=== PATIENT | male | born 1945 | race Caucasian/White ===

== ENCOUNTER 2020-11-27 18:34 | Inpatient (IN) ==
[2020-11-27] MEDS ORDERED: ALBUTEROL HFA 8 GM INHALER INH ONE (19:03)
[2020-11-27] MEDS ORDERED: dexAMETHasone**PF** 10 MG/ML VIAL IV ONE (19:03)
[2020-11-27] MEDS ORDERED: SODIUM CHLORIDE 0.9% 1000ML 500 ML IV ONE (19:06)
--- NOTE | 2020-11-27 19:09 | Emergency Department Note ---
Impression & Plan Hypoxia, SOB (shortness of breath), Pneumonia, COVID-19 ED Provider Note NAME: KENDRA SHEIKH AGE: 75 SEX: M : 1945 ARRIVES VIA: Walk-In INFORMANT: [Patient] ED PROVIDER(S): [Horace Sterling MD] CHIEF COMPLAINT: Shortness of breath HISTORY OF PRESENT ILLNESS: The patient is a 75-year-old male who states that he is 10 days into a Covid infection. He has had chills, cough, some shortness of breath. The patient has had a fever and body aches. He has not had any issues with taste or smell. The patient states his whole family is sick and in quarantine. The patient is not immunized against Covid. Over the last few days, the patient has noticed increasing shortness of breath. He feels like he cannot catch enough breath and that he cannot cough out what m ight be in his lungs. He presents for evaluation. Patient does not have any diagnosed lung disease but he does have a history of coronary stenting. He has never had a PE or DVT. He states he has been laying around quite a bit lately as he has been so winded. REVIEW OF SYSTEMS: See HPI for pertinent positives and negatives. A total of ten systems were reviewed and were otherwise negative. PMHx/PSHx: See Below SOCIAL HISTORY: See Below. PHYSICAL EXAM: GENERAL: Patient is in no acute distress. HEENT: No acute trauma, normocephalic atraumatic, mucous membranes moist, no nasal congestion, no scleral icterus. NECK: No stridor, no adenopathy, no meningismus, trachea is midline. LUNGS: He does have some decreased breath sounds with some crackles on the left. No wheezing. He has an increased respiratory rate. No true respiratory distress. HEART: Tachycardic, regular rhythm, no murmurs. ABDOMEN: Soft, nontender, bowel sounds positive, no hernias, no peritonitis. EXTREMITIES: No cyanosis or edema, full range of motion of all the joints without pain or difficulty, no signs for acute trauma. NEUROLOGIC: Oriented x 3, no acute motor or sensory deficits, no focal weakness. SKIN: No rash, no jaundice, no diaphoresis. DIFFERENTIAL DIAGNOSIS: Reactive airway disease, pneumonia, pneumothorax, COVID-19, COPD, CHF, infection, cardiac ischemia, pulmonary embolism, bronchitis, musculoskeletal, gastrointestinal, as well as other pathologies. EMERGENCY DEPARTMENT COURSE/PROCEDURES: ECG: Indication was shortness of breath. The ECG shows a normal sinus rhythm with a rate of 92. LVH is present. There is no ST elevation, no PVCs. The QTc is 460. Continuous Cardiac Monitoring: An order was placed for continuous cardiac monitoring. The monitor shows a rate of 107 with sinus tachycardia. Critical Care Note: I have personally spent 38 minutes of critical care time in the direct management of this patient. This includes bedside care, interpretation of diagnostic studies, and testing, discussion with consultants, patient, and family members, and other required patient management activities. This 38 minutes is in excess of all separately billable procedures. MEDICAL DECISION MAKING: There is no leukocytosis or concerning anemia. There is a normal platelet count. No coagulopathy. D-dimer was elevated making PE more likely. No significant electrolyte abnormality or kidney failure. Lactic acid level was not elevated making sepsis unlikely. No worrisome liver enzyme elevation. ECG shows a sinus rhythm, no acute ischemia. Cardiac enzyme testing x1 is not consistent with acute cardiac injury. Covid testing returned positive. Chest film shows a bilateral pneumonia consistent with his Covid diagnosis. Chest CT does not show any PE or aortic dissection. Bilateral pulmonary infiltrates consistent with a viral pneumonia were noted. Patient received IV saline, 500 cc. He was given albuterol via MDI, he was given IV Decadron. He did drop his O2 saturation to around 88 to 89% with ambulation. He became hypoxic with exertion. The patient has worsened in the last few days. He has become more short of breath. He is hypoxic with exertion and I do think at this point requires a hospital stay. I did speak with the patient and case management, the on-call hospitalist was consulted. His Covid diagnosis does explain his presentation. Past Med/Surg History Medical History Bladder stone BPH (benign prostatic hyperplasia) GERD (gastroesophageal reflux disease) Heart disease HTN (hypertension) Hyperlipidemia Myocardial infarction X2 - Stents placed after first MN Urinary tract infection Surgical History H/O heart artery stent History of cardiac cath X2 History of colonoscopy History of cystoscopy LASER LITHO 11/16/13 - MAC #3, ETT #8.0 cuffed, Grade 2 View History of herniorrhaphy Right inguinal History of nasal surgery Age 17 - for nasal fracture Family History Other Family history non-contributory Social History Smoking Status: Never smoker Cigarettes Per Day: 0; Second Hand Exposure: No; Hx Alcohol Use: Yes Alcohol type: other Hx Substance Use: No Preferred Language: Sami Communication Ability: Effective Recycling Specialist Required: No Beliefs That Will Affect Care: None Current Living Situation: Spouse current occupation: mail delivery Feels Safe at Home: Yes Assistive Devices: Hearing Aid - Bilateral Allergies Allergies Allergy/AdvReac Type Severity Reaction Status Date / Time No Known Allergies Allergy U Verified 11/27/20 20:48 Home Meds Home Medications Medication Instructions Recorded Confirmed atorvastatin 80 mg PO QAM 10/22/18 11/27/20 citalopram 60 mg PO QAM 10/22/18 11/27/20 ezetimibe 10 mg PO QAM 10/22/18 11/27/20 finasteride 5 mg PO QAM 10/22/18 11/27/20 metoprolol succinate 25 mg PO QAM 10/22/18 11/27/20 omeprazole 40 mg PO QAM 10/22/18 11/27/20 tamsulosin 0.4 mg PO QAM 10/22/18 11/27/20 aspirin 81 mg PO QAM 11/21/18 11/27/20 ferrous sulfate [Iron (ferrous 325 mg PO BID 11/21/18 11/27/20 sulfate)] Results & Data (ED) Vital Signs Vital Signs - 24 hr 11/27/20 18:39 11/27/20 19:05 11/27/20 19:07 Temperature 36.9 C Temperature Source Temporal Artery Scan Pulse Rate 121 H 100 H 98 H Pulse Rate [Exercises] Pulse Rate from SpO2 Sensor 99 H 98 H Respiratory Rate 20 18 14 Respiratory Rate [Exercises] Respiratory Effort / Characteristics Non-Labored Respiratory Depth Normal Respiratory Pattern Regular Blood Pressure 123/79 163/85 H Blood Pressure Mean 93 111 Pulse Oximetry 90 90 92 Pulse Oximetry [Exercises] Oxygen Delivery Method Room Air Oxygen Flow Rate Sepsis Recent Fever Within 48 Hours No Sepsis New/Unexplained Change in Mental Status No Sepsis Action Taken by Nursing No Action Required 11/27/20 19:15 11/27/20 19:30 11/27/20 19:35 Temperature Temperature Source Pulse Rate 95 H Pulse Rate [Exercises] 107 H Pulse Rate from SpO2 Sensor 95 H 96 H Respiratory Rate 15 Respiratory Rate [Exercises] 24 Respiratory Effort / Characteristics Non-Labored Spontaneous Accessory Muscle Use Respiratory Depth Normal Respiratory Pattern Regular Blood Pressure Blood Pressure Mean Pulse Oximetry 94 94 89 L Pulse Oximetry [Exercises] 89 L Oxygen Delivery Method Nasal Cannula Oxygen Flow Rate 2 Sepsis Recent Fever Within 48 Hours Sepsis New/Unexplained Change in Mental Status Sepsis Action Taken by Nursing 11/27/20 19:37 11/27/20 19:45 11/27/20 20:00 Temperature Temperature Source Pulse Rate 84 Pulse Rate [Exercises] Pulse Rate from SpO2 Sensor 88 85 84 Respiratory Rate 18 Respiratory Rate [Exercises] Respiratory Effort / Characteristics Respiratory Depth Respiratory Pattern Blood Pressure 142/76 H 149/66 H Blood Pressure Mean 98 93 Pulse Oximetry 97 96 95 Pulse Oximetry [Exercises] Oxygen Delivery Method Nasal Cannula Oxygen Flow Rate 2 Sepsis Recent Fever Within 48 Hours Sepsis New/Unexplained Change in Mental Status Sepsis Action Taken by Nursing 11/27/20 20:15 11/27/20 20:30 11/27/20 20:45 Temperature Temperature Source Pulse Rate 85 89 92 H Pulse Rate [Exercises] Pulse Rate from SpO2 Sensor 85 89 92 H Respiratory Rate 26 H 22 24 Respiratory Rate [Exercises] Respiratory Effort / Characteristics Respiratory Depth Respiratory Pattern Blood Pressure 142/70 H Blood Pressure Mean 94 Pulse Oximetry 96 95 94 Pulse Oximetry [Exercises] Oxygen Delivery Method Oxygen Flow Rate Sepsis Recent Fever Within 48 Hours Sepsis New/Unexplained Change in Mental Status Sepsis Action Taken by Nursing 11/27/20 21:12 11/27/20 21:15 11/27/20 21:30 Temperature Temperature Source Pulse Rate 88 87 84 Pulse Rate [Exercises] Pulse Rate from SpO2 Sensor 95 H 88 84 Respiratory Rate 20 23 21 Respiratory Rate [Exercises] Respiratory Effort / Characteristics Respiratory Depth Respiratory Pattern Blood Pressure 137/67 Blood Pressure Mean 90 Pulse Oximetry 96 96 97 Pulse Oximetry [Exercises] Oxygen Delivery Method Oxygen Flow Rate Sepsis Recent Fever Within 48 Hours Sepsis New/Unexplained Change in Mental Status Sepsis Action Taken by Nursing 11/27/20 21:45 11/27/20 22:00 11/27/20 22:15 Temperature Temperature Source Pulse Rate 83 80 78 Pulse Rate [Exercises] Pulse Rate from SpO2 Sensor 83 80 79 Respiratory Rate Respiratory Rate [Exercises] Respiratory Effort / Characteristics Respiratory Depth Respiratory Pattern Blood Pressure 138/72 Blood Pressure Mean 94 Pulse Oximetry 96 96 97 Pulse Oximetry [Exercises] Oxygen Delivery Method Oxygen Flow Rate Sepsis Recent Fever Within 48 Hours Sepsis New/Unexplained Change in Mental Status Sepsis Action Taken by Nursing 11/27/20 22:30 11/27/20 22:45 11/27/20 23:00 Temperature Temperature Source Pulse Rate 78 76 72 Pulse Rate [Exercises] Pulse Rate from SpO2 Sensor 79 76 72 Respiratory Rate Respiratory Rate [Exercises] Respiratory Effort / Characteristics Respiratory Depth Respiratory Pattern Blood Pressure 135/67 124/69 Blood Pressure Mean 89 87 Pulse Oximetry 97 97 97 Pulse Oximetry [Exercises] Oxygen Delivery Method Oxygen Flow Rate Sepsis Recent Fever Within 48 Hours Sepsis New/Unexplained Change in Mental Status Sepsis Action Taken by [facility] Medications Current Medication List: was personally reviewed by me Laboratory Data Attestation: I reviewed the patient's lab results. Result diagrams: 11/27/20 19:22 11/27/20 19:22 Lab Results 11/27/20 11/27/20 11/27/20 Range/Units 19:22 19:22 19:22 WBC 4.87 (4.8-10.8) K/uL RBC 5.38 (4.7-6.1) M/uL Hgb 15.9 (14.0-18.0) g/dL Hct 47.2 (42-52) % MCV 87.7 (80-100) fL MCH 29.6 (25-34) pg MCHC 33.7 (32-36) g/dL RDW Std Deviation 47.1 H (36.4-46.3) fL RDW Coeff of Demetrice 14.6 H (11.5-14.5) % Plt Count 168 (130-400) K/uL MPV 10.9 H (7.4-10.4) fL Immature Gran % (Auto) 0.2 % Neut % (Auto) 73.1 % Lymph % (Auto) 17.7 % [place] % (Auto) 8.8 % Eos % (Auto) 0.0 % Baso % (Auto) 0.2 % Neut # (Auto) 3.56 (1.4-6.5) K/uL Lymph # (Auto) 0.86 L (1.2-3.4) K/uL [place] # (Auto) 0.43 (0.11-0.59) K/uL Eos # (Auto) 0.00 (0-0.5) K/uL Baso # (Auto) 0.01 (0-0.2) K/uL Immature Gran # (Auto) 0.01 (0.00-0.02) K/uL PT 10.2 (9.0-12.0) Seconds INR 1.0 (0.9-1.1) APTT 29.1 (21.0-31.0) Seconds PTT Ratio 1.1 D-Dimer 950 H* (0-500) ug/L FEU Sodium 136 (136-145) mmol/L Potassium 3.8 (3.5-5.1) mmol/L Chloride 104 (98-107) mmol/L Carbon Dioxide 25 (21-32) mmol/L Anion Gap 7.0 (3-11) BUN 22 H (7-18) mg/dl Creatinine 1.20 (0.6-1.4) mg/dl Est Cr Clr Drug Dosing 66.9 ml/min Est GFR ( Amer) 68.6 ml/min Est GFR (Non-Af Amer) 59.2 ml/min BUN/Creatinine Ratio 18.3 (10-20) Glucose 111 H (70-99) mg/dl Lactate (0.4-2.0) mmol/L Calcium 9.2 (8.5-10.1) mg/dl Magnesium 1.9 (1.8-2.4) mg/dl Total Bilirubin 0.8 (0.2-1) mg/dl AST 35 (15-37) U/L ALT 42 (12-78) U/L Alkaline Phosphatase 83 (45-117) U/L Troponin I < 0.015 (0-0.045) ng/ml Total Protein 7.1 (6.4-8.2) gm/dl Albumin 3.1 L (3.4-5.0) gm/dl Globulin 4.0 (2.5-4.0) gm/dl Albumin/Globulin Ratio 0.8 L (0.9-2) COVID-19 Eval Order SARS-CoV-2 (PCR) (Negative) 0511/27/20 11/27/20 Range/Units 19:22 19:22 19:22 WBC (4.8-10.8) K/uL RBC (4.7-6.1) M/uL Hgb (14.0-18.0) g/dL Hct (42-52) % MCV (80-100) fL MCH (25-34) pg MCHC (32-36) g/dL RDW Std Deviation (36.4-46.3) fL RDW Coeff of Demetrice (11.5-14.5) % Plt Count (130-400) K/uL MPV (7.4-10.4) fL Immature Gran % (Auto) % Neut % (Auto) % Lymph % (Auto) % [place] % (Auto) % Eos % (Auto) % Baso % (Auto) % Neut # (Auto) (1.4-6.5) K/uL Lymph # (Auto) (1.2-3.4) K/uL [place] # (Auto) (0.11-0.59) K/uL Eos # (Auto) (0-0.5) K/uL Baso # (Auto) (0-0.2) K/uL Immature Gran # (Auto) (0.00-0.02) K/uL PT (9.0-12.0) Seconds INR (0.9-1.1) APTT (21.0-31.0) Seconds PTT Ratio D-Dimer (0-500) ug/L FEU Sodium (136-145) mmol/L Potassium (3.5-5.1) mmol/L Chloride (98-107) mmol/L Carbon Dioxide (21-32) mmol/L Anion Gap (3-11) BUN (7-18) mg/dl Creatinine (0.6-1.4) mg/dl Est Cr Clr Drug Dosing ml/min Est GFR ( Amer) ml/min Est GFR (Non-Af Amer) ml/min BUN/Creatinine Ratio (10-20) Glucose (70-99) mg/dl Lactate 1.2 (0.4-2.0) mmol/L Calcium (8.5-10.1) mg/dl Magnesium (1.8-2.4) mg/dl Total Bilirubin (0.2-1) mg/dl AST (15-37) U/L ALT (12-78) U/L Alkaline Phosphatase (45-117) U/L Troponin I (0-0.045) ng/ml Total Protein (6.4-8.2) gm/dl Albumin (3.4-5.0) gm/dl Globulin (2.5-4.0) gm/dl Albumin/Globulin Ratio (0.9-2) COVID-19 Eval Order Cov[facility] at [facility] SARS-CoV-2 (PCR) POSITIVE A* (Negative) Administered Medications Magnesium Sulfate/Dextrose (Magnesium Sulfate / D5w) 1 gm in 100 mls @ 50 mls/ hr IV Q2H TEZ Stop: 11/28/20 02:15 Last Admin: 11/27/20 22:56 Dose: 50 mls/hr Documented by: [id number] Infusion: 11/27/20 22:56 Dose: 50 mls/hr Documented by: [id number] Admin: 11/27/20 22:55 Dose: 50 mls/hr Documented by: [id number] Discontinued Medications Albuterol (Albuterol Hfa 8 Gm Inhaler) 3 puffs INH NOW ONE Stop: 11/27/20 19:04 Last Admin: 11/27/20 19:54 Dose: 3 puffs Documented by: [id number] Dexamethasone Sodium Phosphate (DexamethasonePf 10 Mg/Ml Vial) 10 mg IV NOW ONE Stop: 11/27/20 19:04 Last Admin: 11/27/20 19:54 Dose: 10 mg Documented by: [id number] Sodium Chloride (Nss 1000ml) 500 mls @ 999 mls/hr IV .Q31M ONE Stop: 11/27/20 19:36 Last Infusion: 11/27/20 20:29 Dose: 0 mls/hr Documented by: [id number] Admin: 11/27/20 19:54 Dose: 999 mls/hr Documented by: [id number] Ioversol (Optiray 350 500ml) 98 ml IV ONCE ONE Stop: 11/27/20 21:05 Last Admin: 11/27/20 21:04 Dose: 98 ml Documented by: [id number] Potassium Chloride (Potassium Chloride Crtab 20 Meq Tabcr) 20 meq PO NOW STA Stop: 11/27/20 22:28 Last Admin: 11/27/20 22:56 Dose: 20 meq Documented by: [id number] Imaging Data Radiologist's Impression: Chest X-Ray 11/27/20 19:03 XR chest 1V portable CLINICAL HISTORY: Shortness of breath. COMPARISON STUDY: Chest radiograph October 22, 2018. FINDINGS: Lung volumes are mildly diminished. There is no pneumothorax or ple ural effusion. Cardiomegaly is unchanged. Note is made of moderate multifocal bilateral airspace opacities. IMPRESSION: Bilateral airspace opacities which favor multifocal pneumonia. Radiographic follow-up is recommended to ensure resolution. ACT 112: Negative or not required by law. Electronically signed by: Carloz Rivera M.D. 11/27/2020 7:[address] for PE: There is no pulmonary embolus. There are some mild atherosclerotic change of the aorta, no aneurysm or aortic dissection. There is patchy groundglass opacities throughout the lungs consistent with Covid infection. There is a trace right pleural effusion. There are some nonspecific prominent mediastinal hilar lymph nodes present. Discharge Plan Visit Data Chief Complaint: Shortness of Breath/Dyspnea Stated Complaint: COVID +, SOB ED Provider: Horace Sterling Discharge Problem: Hypoxia, SOB (shortness of breath), Pneumonia, COVID-19 Patient Disposition: Admitted As Inpatient Condition: Fair Forms Stand Alone Forms: [facility] Prescriptions Prescriptions: No Action aspirin 81 mg Tablet,Delayed Release (Dr/Ec) 81 mg PO QAM RF: 0 ferrous sulfate [Iron (ferrous sulfate)] 325 mg (65 mg iron) Tablet 325 mg PO BID RF: 0 atorvastatin 80 mg tablet 80 mg PO QAM RF: 0 citalopram 40 mg tablet 60 mg PO QAM RF: 0 omeprazole 40 mg capsule,delayed release(DR/EC) 40 mg PO QAM RF: 0 tamsulosin 0.4 mg Capsule 0.4 mg PO QAM RF: 0 metoprolol succinate 25 mg tablet extended release 24 hr 25 mg PO QAM RF: 0 finasteride 5 mg tablet 5 mg PO QAM RF: 0 ezetimibe 10 mg Tablet 10 mg PO QAM RF: 0 Referrals Referrals: Susan Larios DO [Primary Care Provider] - Discharge Problem: Pneumonia Qualifiers: Pneumonia type: due to unspecified organism Laterality: bilateral Lung location: unspecified part of lung Qualified Code(s): J18.9 - Pneumonia, unspecified organism
[2020-11-27 19:43] LABS: Hematocrit (blood only) 47.2 % (42-52); Hemoglobin 15.9 g/dL (14.0-18.0); Mean Corpuscular Hemoglobin 29.6 pg (25-34); Mean Corpuscular Hgb Conc 33.7 g/dL (32-36); Mean Corpuscular Volume 87.7 fL (80-100); Mean Platelet Volume 10.9 fL (7.4-10.4); Platelet Count 168 K/uL (130-400); RDW Coefficient of Variation 14.6 % (11.5-14.5); RDW Standard Deviation 47.1 fL (36.4-46.3); Red Blood Count 5.38 M/uL (4.7-6.1); White Blood Count 4.87 K/uL (4.8-10.8)
--- NOTE | 2020-11-27 19:45 | XRay Report ---
XR chest 1V portable CLINICAL HISTORY: Shortness of breath. COMPARISON STUDY: Chest radiograph October 22, 2018. FINDINGS: Lung volumes are mildly diminished. There is no pneumothorax or pleural effusion. Cardiomeg steven is unchanged. Note is made of moderate multifocal bilateral airspace opacities. IMPRESSION: Bilateral airspace opacities which favor multifocal pneumonia. Radiographic follow-up is recommended to ensure resolution. ACT 112: Negative or not required by law. Electronically signed by: Carloz Rivera M.D. 11/27/2020 7:44 PM
[2020-11-27 19:56] LABS: Partial Thromboplastin Ratio 1.1; Partial Thromboplastin Time 29.1 Seconds (21.0-31.0); Prothrombin Time 10.2 Seconds (9.0-12.0)
[2020-11-27 19:57] LABS: Alanine Aminotransferase 42 U/L (12-78); Albumin Level 3.1 gm/dl (3.4-5.0); Aspartate Aminotransferase 35 U/L (15-37); BUN Creatinine Ratio 18.3 (10-20); Blood Urea Nitrogen 22 mg/dl (7-18); Calcium 9.2 mg/dl (8.5-10.1); Carbon Dioxide 25 mmol/L (21-32); Chloride 104 mmol/L (98-107); Creatinine Clr Calc Pharmacy 66.9 ml/min; Est GFR (African American) 68.6 ml/min; Est GFR (Non-African American) 59.2 ml/min; Glucose 111 mg/dl (70-99); Magnesium 1.9 mg/dl (1.8-2.4); Potassium 3.8 mmol/L (3.5-5.1); Sodium 136 mmol/L (136-145)
[2020-11-27 20:01] LABS: Albumin Globulin Ratio 0.8 (0.9-2); Alkaline Phosphatase 83 U/L (45-117); Bilirubin,Total 0.8 mg/dl (0.2-1); Total Protein 7.1 gm/dl (6.4-8.2); Troponin I < 0.015 ng/ml (0-0.045)
[2020-11-27 20:05] LABS: D Dimer 950 ug/L FEU (0-500)
[2020-11-27 20:23] LABS: Basophils # (auto) 0.01 K/uL (0-0.2); Basophils % (auto) 0.2 %; Immature Granulocytes # (auto) 0.01 K/uL (0.00-0.02); Immature Granulocytes % (auto) 0.2 %; Lymphocytes # (auto) 0.86 K/uL (1.2-3.4); Lymphocytes % (auto) 17.7 %; Monocytes # (auto) 0.43 K/uL (0.11-0.59); Monocytes % (auto) 8.8 %; Neutrophils # (auto) 3.56 K/uL (1.4-6.5); Neutrophils % (auto) 73.1 %
[2020-11-27] MEDS ORDERED: OPTIRAY 350 500ml IV ONE (21:04)
[2020-11-27] MEDS ORDERED: POTASSIUM CHLORIDE CRTAB 20 MEQ TABCR PO STA (22:27)
[2020-11-27] MEDS: MAGNESIUM SULFATE / D5W 1 GM/100 ML BAG IV SCH ×2 (22:55→22:56)
--- NOTE | 2020-11-27 23:28 | History & Physical Report ---
Date of Service November 27, 2020 Assessment & Plan (1) Acute hypoxemic respiratory failure: Secondary to severe COVID-19 pneumonia Positive test from 19 days ago although patient claims to be symptomatic just in the last 3 days. CAD status post stent/PVD hx bicuspid aortic valve/mild aortic regurgitation hypertension, slightly elevated hyperlipidemia on statin Rx prediabetes, hemoglobin A1c of 5.4 from 2019 Medical telemetry Supplemental O2 Decadron, MDI RTC Patient refusing Remdesivir course for now. Update hemoglobin A1c DVT prophylaxis. Lovenox subcu Full code Text document was generated using Numote voice recognition software. It may contain grammatical or spelling errors. Kindly contact undersigned for clarification of any documentation item in question. History of Present Illness Chief Complaint: Shortness of breath, Covid Primary Care Provider: Susan Larios DO History obtained from patient and records. Medical history significant for CAD status post stent, PVD, valvular heart disease (mild/bicuspid aortic valve on TTE 2020), hypertension, hyperlipidemia, prediabetes, anxiety/mood disorder. Last confinement December 2017 for NSTEMI. Nine days ago, patient requested for an outpatient COVID-19 test after exposure to a sick family member. Outpatient COVID-19 test was positive. Patient PCP recommended quarantine. 3 days history of dry cough, fever, chills, shortness of breath. No chest pain. Patient seen at PCP's office today. Outpatient labs and requested. ER evaluation recommended for worsening symptoms. O2 sats noted to be 89 at some point during ER stay. Patient received Decadron at the ER. Medical History as above Surgical History : Cystoscopy, nasal septum repair, hernia repair Family History : Heart disease, stroke Personal/Social history : Non-smoker, occasional EtOH intake, retired from construction work Allergies Allergy/AdvReac Type Severity Reaction Status Date / Time No Known Allergies Allergy U Verified 11/27/20 20:48 Home Medications Medication Instructions Recorded Confirmed Type atorvastatin 80 mg PO QAM 10/22/18 11/27/20 History citalopram 60 mg PO QAM 10/22/18 11/27/20 History ezetimibe 10 mg PO QAM 10/22/18 11/27/20 History finasteride 5 mg PO QAM 10/22/18 11/27/20 History metoprolol succinate 25 mg PO QAM 10/22/18 11/27/20 History omeprazole 40 mg PO QAM 10/22/18 11/27/20 History tamsulosin 0.4 mg PO QAM 10/22/18 11/27/20 History aspirin 81 mg PO QAM 11/21/18 11/27/20 History ferrous sulfate [Iron (ferrous 325 mg PO BID 11/21/18 11/27/20 History sulfate)] Past Med/Surg History Medical History (Updated 11/28/20 @ 05:28 by Tone Alexander MD) Bladder stone BPH (benign prostatic hyperplasia) GERD (gastroesophageal reflux disease) Heart disease HTN (hypertension) Hyperlipidemia Myocardial infarction X2 - Stents placed after first [place] Urinary tract infection Surgical History H/O heart artery stent History of cardiac cath X2 History of colonoscopy History of cystoscopy LASER LITHO 11/16/13 - MAC #3, ETT #8.0 cuffed, Grade 2 View History of herniorrhaphy Right inguinal History of nasal surgery Age 17 - for nasal fracture Family History Other Family history non-contributory Social History Smoking Status: Never smoker Cigarettes Per Day: 0; Second Hand Exposure: No; Hx Alcohol Use: No Hx Substance Use: No Preferred Language: Qatari Communication Ability: Effective 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 Required: No Beliefs That Will Affect Care: None Current Living Situation: Spouse current occupation: mail delivery Other Information That Helps Us Care for You: No Feels Safe at Home: Yes Safety Concerns: Feels Safe At This Time Assistive Devices: None Review of Systems Review of Systems: As per HPI, all 10 systems reviewed, all other ROS negative Physical Exam Physical Exam: GENERAL: Comfortable, pleasant, obese, no respiratory distress SKIN: Normal color, warm HEENT: Alopecia, pink palpebral conjunctivae, no ptosis, dry buccal mucosa, nasal cannula in place NECK : Supple, no tenderness CHEST : Decreased breath sounds, no tenderness HEART : RRR, no obvious murmurs ABDOMEN: Some distention, nontender EXTREMITIES : No LE swelling/tenderness, no other conspicuous deformities noted NEUROLOGIC : Coherent, no facial asymmetry, no other gross focality Results & Data Results & Data ([facility]) Vital Signs (Past 12 Hours) Vital Signs Temp Pulse Pulse Resp Resp BP Pulse Ox 11/27/20 23:00 72 22 124/69 97 11/27/20 22:45 76 21 97 11/27/20 22:30 78 24 135/67 97 11/27/20 22:15 78 21 97 11/27/20 22:00 80 20 138/72 96 11/27/20 21:45 83 19 96 11/27/20 21:30 84 21 137/67 97 11/27/20 21:15 87 23 96 11/27/20 21:12 88 20 96 11/27/20 20:45 92 H 24 94 11/27/20 20:30 89 22 142/70 H 95 11/27/20 20:15 85 26 H 96 11/27/20 20:00 84 18 149/66 H 95 11/27/20 19:45 96 11/27/20 19:37 142/76 H 97 11/27/20 19:35 107 H 24 89 L 11/27/20 19:30 94 11/27/20 19:15 95 H 15 94 11/27/20 19:07 98 H 14 92 11/27/20 19:05 100 H 18 163/85 H 90 11/27/20 18:39 36.9 C 121 H 20 123/79 90 Pulse Ox 11/27/20 23:00 11/27/20 22:45 11/27/20 22:30 11/27/20 22:15 11/27/20 22:00 11/27/20 21:45 11/27/20 21:30 11/27/20 21:15 11/27/20 21:12 11/27/20 20:45 11/27/20 20:30 11/27/20 20:15 11/27/20 20:00 11/27/20 19:45 11/27/20 19:37 11/27/20 19:35 89 L 11/27/20 19:30 11/27/20 19:15 11/27/20 19:07 11/27/20 19:05 11/27/20 18:39 Laboratory Results Laboratory Results WBC 4.87 K/uL (4.8-10.8) 11/27/20 19:22 RBC 5.38 M/uL (4.7-6.1) 11/27/20: Hgb 15.9 g/dL (14.0-18.0) 11/27/20: Hct 47.2 % (42-52) 11/27/20: MCV 87.7 fL (80-100) 11/27/20: MCH 29.6 pg (25-34) 11/27/20: MCHC 33.7 g/dL (32-36) 11/27/20: RDW Std Deviation 47.1 fL (36.4-46.3) H 11/27/20: RDW Coeff of Demetrice 14.6 % (11.5-14.5) H 11/27/20: Plt Count 168 K/uL (130-400) 11/27/20: MPV 10.9 fL (7.4-10.4) H 11/27/20: Immature Gran % (Auto) 0.2 % 11/27/20: Neut % (Auto) 73.1 % 11/27/20: Lymph % (Auto) 17.7 % 11/27/20: [place] % (Auto) 8.8 % 11/27/20: Eos % (Auto) 0.0 % 11/27/20: Baso % (Auto) 0.2 % 11/27/20: Neut # (Auto) 3.56 K/uL (1.4-6.5) 11/27/20: Lymph # (Auto) 0.86 K/uL (1.2-3.4) L 11/27/20: [place] # (Auto) 0.43 K/uL (0.11-0.59) 11/27/20: Eos # (Auto) 0.00 K/uL (0-0.5) 11/27/20: Baso # (Auto) 0.01 K/uL (0-0.2) 11/27/20: Immature Gran # (Auto) 0.01 K/uL (0.00-0.02) 11/27/20: PT 10.2 Seconds (9.0-12.0) 11/27/20: INR 1.0 (0.9-1.1) 11/27/20 19: APTT 29.1 Seconds (21.0-31.0) 11/27/20 19: PTT Ratio 1.1 11/27/20 19: D-Dimer 950 ug/L FEU (0-500) H* 11/27/20 19: Sodium 136 mmol/L (136-145) 11/27/20 19: Potassium 3.8 mmol/L (3.5-5.1) 11/27/20 19: Chloride 104 mmol/L (98-107) 11/27/20 19: Carbon Dioxide 25 mmol/L (21-32) 11/27/20: Anion Gap 7.0 (3-11) 11/27/20: BUN 22 mg/dl (7-18) H 11/27/20: Creatinine 1.20 mg/dl (0.6-1.4) 11/27/20: Est Cr Clr Drug Dosing 66.9 ml/min 11/27/20 19: Est GFR ( Amer) 68.6 ml/min 11/27/20 19: Est GFR (Non-Af Amer) 59.2 ml/min 11/27/20 19: BUN/Creatinine Ratio 18.3 (10-20) 11/27/20 19: Glucose 111 mg/dl (70-99) H 11/27/20: Lactate 1.2 mmol/L (0.4-2.0) 11/27/20: Calcium 9.2 mg/dl (8.5-10.1) 11/27/20 19: Magnesium 1.9 mg/dl (1.8-2.4) 11/27/20: Total Bilirubin 0.8 mg/dl (0.2-1) 11/27/20 19: AST 35 U/L (15-37) 11/27/20 19: ALT 42 U/L (12-78) 11/27/20: Alkaline Phosphatase 83 U/L (45-117) 11/27/20: Troponin I < 0.015 ng/ml (0-0.045) 05/19/21 19:22 Total Protein 7.1 gm/dl (6.4-8.2) 11/27/20 19:22 Albumin 3.1 gm/dl (3.4-5.0) L 11/27/20 19:22 Globulin 4.0 gm/dl (2.5-4.0) 11/27/20 19:22 Albumin/Globulin Ratio 0.8 (0.9-2) L 11/27/20 19:22 COVID-19 Eval Order Covid19 at [facility] 11/27/20 19:22 SARS-CoV-2 (PCR) POSITIVE (Negative) A* 11/27/20 19:22 Impressions Chest X-Ray 11/27/20 19:03 XR chest 1V portable CLINICAL HISTORY: Shortness of breath. COMPARISON STUDY: Chest radiograph October 22, 2018. FINDINGS: Lung volumes are mildly diminished. There is no pneumothorax or pleural effusion. Cardiomegaly is unchanged. Note is made of moderate multifocal bilateral airspace opacities. IMPRESSION: Bilateral airspace opacities which favor multifocal pneumonia. Radiographic follow-up is recommended to ensure resolution. ACT 112: Negative or not required by law. Electronically signed by: Carloz Rivera M.D. 11/27/2020 7:[address] chest initial read: No pulmonary embolus identified. Mild atherosclerotic changes of the aorta. No aortic aneurysm or dissection. Patchy ground glass opacities at densities throughout the lungs, concerning for Covid 19 infection. Trace right pleural effusion. Nonspecific mildly prominent mediastinal and hilar lymph nodes. Small hiatal hernia. Small hepatic cysts. EKG as per my interpretation : Rate 90, NSR, LAD, LAFB, LVH T wave abnormalities inferior leads
[2020-11-28] MEDS ORDERED: NSS + 20MEQ KCL 20 MEQ/1,000 ML BAG IV ONE (02:26)
[2020-11-28] MEDS ORDERED: PROMETHAZINE HCL 12.5 MG in SODIUM CHLORIDE 0.9% 50 ML IV PRN (02:26)
[2020-11-28] MEDS ORDERED: traMADol HCL 50 MG TABLET PO PRN (02:26)
[2020-11-28] MEDS ORDERED: ACETAMINOPHEN 325 MG TAB PO PRN (02:26)
[2020-11-28] MEDS: guaiFENesin 600 MG TABCR PO SCH ×3 (03:31→21:10)
[2020-11-28] MEDS ORDERED: ALBUTEROL HFA 8 GM INHALER INH SCH (07:00)
--- NOTE | 2020-11-28 07:30 | CT Scan Report ---
CT ANGIOGRAM OF THE CHEST CLINICAL HISTORY: PE COMPARISON STUDY: No previous studies for comparison. TECHNIQUE: Following the IV administration of 98 mL of Optiray, CT angiogram of the thorax was perfor med from the thoracic inlet to the lung bases utilizing the pulmonary embolus protocol. Images are re viewed in the axial, sagittal, and coronal planes. IV contrast was administered without complication. MIP imaging was performed. A dose lowering technique was utilized adhering to the principles of ALA RA. CT DOSE: 509.32 mGy.cm FINDINGS: There is adequate opacification within pulmonary artery. No intraluminal filling defect is seen within pulmonary artery branches to suggest pulmonary embolus . Pulmonary artery is nondilated. No evidence of right heart strain. Heart is normal in size without evidence of pericardial effusion. Minimal coronary calcifications are seen. There is no axial, supra clavicle or internal mammary lymphadenopathy seen. There are a few slightly prominent mediastinal lymph nodes are seen measuring up to 1.1 cm in short axis. No significant hilar lymphadenopathy seen. Visualized portion of thyroid gland shows no evidence of focal lesions. Esophagus is patulous. Mild hiatal hernia is seen. Aorta is normal in caliber with scattered calcifications of its wall. Tracheobronchial tree is patent. There are multifocal consolidative opacities intermixed with groundglass attenuation and mild septal thickening predominantly within peripheral aspect of bilateral lungs likely represent multifocal pneu monia/COVID. No pleural effusion is seen. Limited evaluation of upper abdomen shows few slightly hypoattenuating lesions within the right and l eft lobes, largest is measuring 1.8 cm seen within subcapsular aspect of the segment 2 (series 4 imag e 11). Evaluation of osseous structures shows mild degenerative changes of the spine. IMPRESSION: 1. No evidence of pulmonary embolus. 2. Multifocal pneumonia/COVID. Short-term follow-up with CT of the chest without IV contrast in 4-6 weeks is recommended to document resolution. 3. Partially visualized multiple hypoattenuating lesions within liver which were better evaluated o n CT of the abdomen and pelvis performed on August 24, 2018. 4. Mild hiatal hernia. ACT 112: Negative or not required by law. The above report was generated using voice recognition software. It may contain grammatical, syntax o r spelling errors. Electronically signed by: Valeria De La Rosa DO 11/28/2020 7:29 AM
[2020-11-28 07:55] LABS: Estimated Average Glucose 128 mg/dl; Hemoglobin A1C 6.1 % (4.5-5.6)
[2020-11-28 08:01] LABS: Basophils # (auto) 0.01 K/uL (0-0.2); Basophils % (auto) 0.3 %; Hematocrit (blood only) 46.7 % (42-52); Hemoglobin 15.7 g/dL (14.0-18.0); Lymphocytes # (auto) 1.04 K/uL (1.2-3.4); Lymphocytes % (auto) 28.4 %; Mean Corpuscular Hemoglobin 30.1 pg (25-34); Mean Corpuscular Hgb Conc 33.6 g/dL (32-36); Mean Corpuscular Volume 89.5 fL (80-100); Mean Platelet Volume 10.1 fL (7.4-10.4); Monocytes % (auto) 8.2 %; Neutrophils # (auto) 2.31 K/uL (1.4-6.5); Neutrophils % (auto) 63.1 %; Platelet Count 182 K/uL (130-400); RDW Coefficient of Variation 14.6 % (11.5-14.5); RDW Standard Deviation 48.3 fL (36.4-46.3); Red Blood Count 5.22 M/uL (4.7-6.1); White Blood Count 3.66 K/uL (4.8-10.8)
[2020-11-28] MEDS ORDERED: ALBUTEROL HFA 8 GM INHALER INH PRN (08:03)
[2020-11-28] MEDS: dexAMETHasone 6 MG in SYRINGE 0 ML IV SCH (08:39)
[2020-11-28] MEDS: ATORVASTATIN 40 MG TAB PO SCH (08:39)
[2020-11-28] MEDS: ASPIRIN 81 MG ECTAB PO SCH (08:39)
[2020-11-28] MEDS: FINASTERIDE 5 MG TAB PO SCH (08:39)
[2020-11-28] MEDS: CITALOPRAM 20 MG TAB PO SCH (08:40)
[2020-11-28] MEDS: FERROUS SULFATE 325 MG TAB PO SCH ×2 (08:40→21:10)
[2020-11-28] MEDS: TAMSULOSIN HCL 0.4 MG CAP PO SCH (08:40)
[2020-11-28] MEDS: EZETIMIBE 10 MG TABLET PO SCH (08:40)
[2020-11-28] MEDS: METOPROLOL SUCC 25MG EXT REL TAB PO SCH (08:40)
[2020-11-28] MEDS: PANTOprazole 40 MG TAB PO SCH (08:40)
[2020-11-28 08:49] LABS: BUN Creatinine Ratio 18.4 (10-20); Calcium 8.7 mg/dl (8.5-10.1); Creatinine Clr Calc Pharmacy 83.1 ml/min; Est GFR (African American) 92.2 ml/min; Est GFR (Non-African American) 79.6 ml/min; Potassium 4.5 mmol/L (3.5-5.1)
[2020-11-28] MEDS: ENOXAPARIN INJ 40 MG/0.4 ML SYR SQ SCH (10:26)
--- NOTE | 2020-11-28 16:36 | Hospitalist Progress Note ---
Date of Service November 28, 2020 Assessment & Plan (1) Acute hypoxemic respiratory failure: Secondary to severe COVID-19 pneumonia Positive test from 9 days ago although patient claims to be symptomatic just in the last 3 days. -- O2 sats 93% this afternoon -- Remdesivir Day 1 started after discussion with patient continue Decadron Day 2 flutter valve, incentive spirometry Lovenox SC -- continue to monitor closely CAD status post stent/PVD hx bicuspid aortic valve/mild aortic regurgitation -- stable hypertension -- BP elevated likely from illness, steroids continue to monitor hyperlipidemia on statin Rx prediabetes -- a1c increased from 5.4 to 6.1 outpatient ff up DVT prophylaxis. Lovenox subcu Full code Disposition pending Admission and Anticipated Discharge Date Admission Date: November 28, 2020 Subjective ff up for acute hypoxic resp failure, COVID 19 PNA seen resting in bed, comfortable not in distress states he feels improved compared to yesterday breathing is improving still has dry cough had 2 loose BMs today no chest pain, leg pain no other symptoms Review of Systems Review of Systems: All systems reviewed & are unremarkable except as noted in Subjective Physical Exam Physical Exam: General- oriented x 3, not in distress, speaks in sentences with no effort or accessory muscle use Head- atraumatic Eyes- PERRL, EOMI, anicteric ENT- oropharynx clear Neck- supple, no JVD, no adenopathy, no thyromegaly; carotids +2/2, no bruits appreciated Lungs- (+) mild crackles at the bases Heart- normal rate, regular rhythm; no murmur, no gallop, no rub appreciated Abdomen- normal bowel sounds, nondistended, soft, nontender, no masses or hepatosplenomegaly Extremities- no pretibial edema, no calf tenderness; peripheral pulses intact Neuro- alert, oriented x 3; CN 2-12 grossly intact; motor 5/5 bilaterally;sensation 100% on all extremities; no other gross focal neurologic deficits Skin- warm & dry Results & Data Results & Data ([facility]) Vital Signs (Past 12 Hours) Vital Signs Temp Pulse Pulse Resp BP Pulse Ox 11/28/20 15:00 58 L 11/28/20 11:30 36.5 C 60 19 155/71 H 95 11/28/20 09:00 60 11/28/20 08:06 36.4 C L 55 L 20 169/70 H 96 11/28/20 05:25 59 L all noted and reviewed including below Laboratory Results Laboratory Results - last 24 hr 11/27/20 11/27/20 11/27/20 19:22 19:22 19:22 WBC 4.87 RBC 5.38 Hgb 15.9 Hct 47.2 MCV 87.7 MCH 29.6 MCHC 33.7 RDW Std Deviation 47.1 H RDW Coeff of Demetrice 14.6 H Plt Count 168 MPV 10.9 H Immature Gran % (Auto) 0.2 Neut % (Auto) 73.1 Lymph % (Auto) 17.7 [place] % (Auto) 8.8 Eos % (Auto) 0.0 Baso % (Auto) 0.2 Neut # (Auto) 3.56 Lymph # (Auto) 0.86 L [place] # (Auto) 0.43 Eos # (Auto) 0.00 Baso # (Auto) 0.01 Immature Gran # (Auto) 0.01 PT 10.2 INR 1.0 APTT 29.1 PTT Ratio 1.1 D-Dimer 950 H* Sodium 136 Potassium 3.8 Chloride 104 Carbon Dioxide 25 Anion Gap 7.0 BUN 22 H Creatinine 1.20 Est Cr Clr Drug Dosing 66.9 Est GFR ( Amer) 68.6 Est GFR (Non-Af Amer) 59.2 BUN/Creatinine Ratio 18.3 Glucose 111 H Estimat Average Glucose Hemoglobin A1c Lactate Calcium 9.2 Magnesium 1.9 Total Bilirubin 0.8 AST 35 ALT 42 Alkaline Phosphatase 83 Troponin I < 0.015 Total Protein 7.1 Albumin 3.1 L Globulin 4.0 Albumin/Globulin Ratio 0.8 L COVID-19 Eval Order SARS-CoV-2 (PCR) Blood Type Antibody Screen 11/27/20 11/27/20 11/27/20 19:22 19:22 19:22 WBC RBC Hgb Hct MCV MCH MCHC RDW Std Deviation RDW Coeff of Demetrice Plt Count MPV Immature Gran % (Auto) Neut % (Auto) Lymph % (Auto) [place] % (Auto) Eos % (Auto) Baso % (Auto) Neut # (Auto) Lymph # (Auto) [place] # (Auto) Eos # (Auto) Baso # (Auto) Immature Gran # (Auto) PT INR APTT PTT Ratio D-Dimer Sodium Potassium Chloride Carbon Dioxide Anion Gap BUN Creatinine Est Cr Clr Drug Dosing Est GFR ( Amer) Est GFR (Non-Af Amer) BUN/Creatinine Ratio Glucose Estimat Average Glucose Hemoglobin A1c Lactate 1.2 Calcium Magnesium Total Bilirubin AST ALT Alkaline Phosphatase Troponin I Total Protein Albumin Globulin Albumin/Globulin Ratio COVID-19 Eval Order Covid19 at [facility] SARS-CoV-2 (PCR) POSITIVE A* Blood Type Antibody Screen 11/27/20 11/28/20 11/28/20 19:22 07:39 07:39 WBC 3.66 L RBC 5.22 Hgb 15.7 Hct 46.7 MCV 89.5 MCH 30.1 MCHC 33.6 RDW Std Deviation 48.3 H RDW Coeff of Demetrice 14.6 H Plt Count 182 MPV 10.1 Immature Gran % (Auto) 0.0 Neut % (Auto) 63.1 Lymph % (Auto) 28.4 [place] % (Auto) 8.2 Eos % (Auto) 0.0 Baso % (Auto) 0.3 Neut # (Auto) 2.31 Lymph # (Auto) 1.04 L [place] # (Auto) 0.30 Eos # (Auto) 0.00 Baso # (Auto) 0.01 Immature Gran # (Auto) 0.00 PT INR APTT PTT Ratio D-Dimer Sodium Potassium Chloride Carbon Dioxide Anion Gap BUN Creatinine Est Cr Clr Drug Dosing Est GFR ( Amer) Est GFR (Non-Af Amer) BUN/Creatinine Ratio Glucose Estimat Average Glucose 128 Hemoglobin A1c 6.1 H Lactate Calcium Magnesium Total Bilirubin AST ALT Alkaline Phosphatase Troponin I Total Protein Albumin Globulin Albumin/Globulin Ratio COVID-19 Eval Order SARS-CoV-2 (PCR) Blood Type A Positive Antibody Screen NEGATIVE 11/28/20 07:39 WBC RBC Hgb Hct MCV MCH MCHC RDW Std Deviation RDW Coeff of Demetrice Plt Count MPV Immature Gran % (Auto) Neut % (Auto) Lymph % (Auto) [place] % (Auto) Eos % (Auto) Baso % (Auto) Neut # (Auto) Lymph # (Auto) [place] # (Auto) Eos # (Auto) Baso # (Auto) Immature Gran # (Auto) PT INR APTT PTT Ratio D-Dimer Sodium 141 Potassium 4.5 D Chloride 111 H Carbon Dioxide 24 Anion Gap 6.0 BUN 17 Creatinine 0.94 Est Cr Clr Drug Dosing 83.1 Est GFR ( Amer) 92.2 Est GFR (Non-Af Amer) 79.6 BUN/Creatinine Ratio 18.4 Glucose 132 H Estimat Average Glucose Hemoglobin A1c Lactate Calcium 8.7 Magnesium Total Bilirubin AST ALT Alkaline Phosphatase Troponin I Total Protein Albumin Globulin Albumin/Globulin Ratio COVID-19 Eval Order SARS-CoV-2 (PCR) Blood Type Antibody Screen
[2020-11-28] MEDS ORDERED: REMDESIVIR 200 MG in SODIUM CHLORIDE 0.9% 210 ML IV ONE (17:30)
--- NOTE | 2020-11-28 18:35 | Electrocardiogram Report ---
Test Reason : Blood Pressure : / mmHG Vent. Rate : 092 BPM Atrial Rate : 092 BPM P-R Int : 132 ms QRS Dur : 084 ms QT Int : 372 ms P-R-T Axes : 050 -28 008 degrees QTc Int : 460 ms Normal sinus rhythm Minimal voltage criteria for LVH, may be normal variant Abnormal ECG When compared with ECG of 22-OCT-2018 20:15, No significant change was found Confirmed by Rios Neri ([id number]) on 11/28/2020 6:35:17 PM Referred By: REFERRED SELF Confirmed By:Shan Neri
[2020-11-28] MEDS: SODIUM CHLORIDE 0.9% 10ML FLUSH IV SCH (21:10)
[2020-11-29 07:37] LABS: Hematocrit (blood only) 43.4 % (42-52); Hemoglobin 14.4 g/dL (14.0-18.0); Immature Granulocytes # (auto) 0.02 K/uL (0.00-0.02); Immature Granulocytes % (auto) 0.2 %; Lymphocytes # (auto) 1.01 K/uL (1.2-3.4); Lymphocytes % (auto) 10.6 %; Mean Corpuscular Hemoglobin 29.2 pg (25-34); Mean Corpuscular Hgb Conc 33.2 g/dL (32-36); Mean Platelet Volume 10.9 fL (7.4-10.4); Monocytes # (auto) 0.49 K/uL (0.11-0.59); Monocytes % (auto) 5.1 %; Neutrophils # (auto) 8.03 K/uL (1.4-6.5); Neutrophils % (auto) 84.1 %; Platelet Count 176 K/uL (130-400); RDW Coefficient of Variation 14.6 % (11.5-14.5); Red Blood Count 4.93 M/uL (4.7-6.1); White Blood Count 9.55 K/uL (4.8-10.8)
[2020-11-29 08:17] LABS: Albumin Globulin Ratio 0.7 (0.9-2); Albumin Level 2.6 gm/dl (3.4-5.0); BUN Creatinine Ratio 24.7 (10-20); Bilirubin,Total 0.6 mg/dl (0.2-1); Calcium 8.6 mg/dl (8.5-10.1); Creatinine Clr Calc Pharmacy 91.6 ml/min; Est GFR (Non-African American) 85.4 ml/min; Globulin 3.5 gm/dl (2.5-4.0); Potassium 4.6 mmol/L (3.5-5.1); Total Protein 6.1 gm/dl (6.4-8.2)
[2020-11-29] MEDS: PANTOprazole 40 MG TAB PO SCH (08:24)
[2020-11-29] MEDS: ATORVASTATIN 40 MG TAB PO SCH (08:24)
[2020-11-29] MEDS: guaiFENesin 600 MG TABCR PO SCH ×2 (08:24→20:33)
[2020-11-29] MEDS: FERROUS SULFATE 325 MG TAB PO SCH ×2 (08:24→20:33)
[2020-11-29] MEDS: dexAMETHasone 6 MG in SYRINGE 0 ML IV SCH (08:24)
[2020-11-29] MEDS: METOPROLOL SUCC 25MG EXT REL TAB PO SCH (08:24)
[2020-11-29] MEDS: CITALOPRAM 20 MG TAB PO SCH (08:24)
[2020-11-29] MEDS: ASPIRIN 81 MG ECTAB PO SCH (08:24)
[2020-11-29] MEDS: TAMSULOSIN HCL 0.4 MG CAP PO SCH (08:25)
[2020-11-29] MEDS: EZETIMIBE 10 MG TABLET PO SCH (08:25)
[2020-11-29] MEDS: ENOXAPARIN INJ 40 MG/0.4 ML SYR SQ SCH (08:25)
[2020-11-29] MEDS: FINASTERIDE 5 MG TAB PO SCH (08:25)
--- NOTE | 2020-11-29 17:08 | Hospitalist Progress Note ---
Date of Service November 29, 2020 Assessment & Plan (1) Acute hypoxemic respiratory failure: Secondary to severe COVID-19 pneumonia Positive test from 9 days ago although patient claims to be symptomatic just in the last 3 days. -- seems to be improving clinically 91-93% on room air -- Remdesivir Day 2 Decadron Day 08/21 flutter valve, incentive spirometry Lovenox SC -- continue to monitor closely CAD status post stent/PVD hx bicuspid aortic valve/mild aortic regurgitation -- stable hypertension -- BP elevated likely from illness, steroids -- improving continue to monitor hyperlipidemia on statin Rx prediabetes -- a1c increased from 5.4 to 6.1 outpatient ff up DVT prophylaxis. Lovenox subcu Full code Disposition pending anticipate d/c home when medically stable Admission and Anticipated Discharge Date Admission Date: November 28, 2020 Subjective ff up for COVID 19 pneumonia seen resting in bed, comfortable, sitting up in good spirits states he continues to feel improved breathing improving still has cough with clear sputum no chest pain, leg pain appetite is good diarrhea improving no other symptoms Review of Systems Review of Systems: All systems reviewed & are unremarkable except as noted in Subjective Physical Exam Physical Exam: General- oriented x 3, not in distress, speaks in sentences with no effort or accessory muscle use Eyes- anicteric Neck- no JVD Lungs-mild rales at the bases no wheezing Heart- normal rate, regular rhythm; no murmurs Abdomen- normal bowel sounds, nondistended, soft, nontender Extremities- no pretibial edema, no calf tenderness Neuro- alert, oriented x 3; no gross focal neurologic deficits Skin- warm & dry Results & Data Results & Data ([facility]) Vital Signs (Past 12 Hours) Vital Signs Temp Pulse Pulse Resp BP Pulse Ox 11/29/20 16:38 60 11/29/20 12:07 36.6 C 71 20 148/63 H 93 11/29/20 07:40 36.5 C 76 18 135/72 91 11/29/20 07:14 53 L all noted and reviewed including below Laboratory Results Laboratory Results - last 24 hr 11/29/20 11/29/20 06:56 06:56 WBC 9.55 RBC 4.93 Hgb 14.4 Hct 43.4 MCV 88.0 MCH 29.2 MCHC 33.2 RDW Std Deviation 47.0 H RDW Coeff of Demetrice 14.6 H Plt Count 176 MPV 10.9 H Immature Gran % (Auto) 0.2 Neut % (Auto) 84.1 Lymph % (Auto) 10.6 [place] % (Auto) 5.1 Eos % (Auto) 0.0 Baso % (Auto) 0.0 Neut # (Auto) 8.03 H Lymph # (Auto) 1.01 L [place] # (Auto) 0.49 Eos # (Auto) 0.00 Baso # (Auto) 0.00 Immature Gran # (Auto) 0.02 Sodium 139 Potassium 4.6 Chloride 110 H Carbon Dioxide 26 Anion Gap 4.0 BUN 21 H Creatinine 0.86 Est Cr Clr Drug Dosing 91.6 Est GFR ( Amer) 99.0 Est GFR (Non-Af Amer) 85.4 BUN/Creatinine Ratio 24.7 H Glucose 100 H Calcium 8.6 Total Bilirubin 0.6 AST 42 H ALT 43 Alkaline Phosphatase 68 Total Protein 6.1 L Albumin 2.6 L Globulin 3.5 Albumin/Globulin Ratio 0.7 L
[2020-11-29] MEDS: NICOTINE 14 MG/24 HR PATCH TD SCH (19:17)
[2020-11-29] MEDS: REMDESIVIR 100 MG in SODIUM CHLORIDE 0.9% 230 ML IV SCH (19:17)
[2020-11-29] MEDS: SODIUM CHLORIDE 0.9% 10ML FLUSH IV SCH (20:37)
[2020-11-30 06:26] LABS: Basophils # (auto) 0.02 K/uL (0-0.2); Basophils % (auto) 0.2 %; Hematocrit (blood only) 46.5 % (42-52); Hemoglobin 15.7 g/dL (14.0-18.0); Immature Granulocytes # (auto) 0.03 K/uL (0.00-0.02); Immature Granulocytes % (auto) 0.3 %; Lymphocytes % (auto) 16.8 %; Mean Corpuscular Hemoglobin 29.5 pg (25-34); Mean Corpuscular Hgb Conc 33.8 g/dL (32-36); Mean Corpuscular Volume 87.4 fL (80-100); Mean Platelet Volume 10.6 fL (7.4-10.4); Monocytes # (auto) 0.66 K/uL (0.11-0.59); Monocytes % (auto) 7.4 %; Neutrophils # (auto) 6.73 K/uL (1.4-6.5); Neutrophils % (auto) 75.3 %; Platelet Count 205 K/uL (130-400); RDW Coefficient of Variation 14.6 % (11.5-14.5); RDW Standard Deviation 46.8 fL (36.4-46.3); Red Blood Count 5.32 M/uL (4.7-6.1); White Blood Count 8.94 K/uL (4.8-10.8)
[2020-11-30 06:59] LABS: Albumin Level 2.9 gm/dl (3.4-5.0); BUN Creatinine Ratio 22.5 (10-20); Calcium 8.9 mg/dl (8.5-10.1); Creatinine Clr Calc Pharmacy 81.5 ml/min; Est GFR (African American) 89.9 ml/min; Est GFR (Non-African American) 77.6 ml/min; Potassium 4.4 mmol/L (3.5-5.1)
[2020-11-30 07:02] LABS: Albumin Globulin Ratio 0.8 (0.9-2); Bilirubin,Total 0.7 mg/dl (0.2-1); Globulin 3.8 gm/dl (2.5-4.0); Total Protein 6.7 gm/dl (6.4-8.2)
[2020-11-30] MEDS: TAMSULOSIN HCL 0.4 MG CAP PO SCH (08:26)
[2020-11-30] MEDS: PANTOprazole 40 MG TAB PO SCH (08:26)
[2020-11-30] MEDS: ASPIRIN 81 MG ECTAB PO SCH (08:27)
[2020-11-30] MEDS: EZETIMIBE 10 MG TABLET PO SCH (08:27)
[2020-11-30] MEDS: ENOXAPARIN INJ 40 MG/0.4 ML SYR SQ SCH (08:27)
[2020-11-30] MEDS: ATORVASTATIN 40 MG TAB PO SCH (08:27)
[2020-11-30] MEDS: guaiFENesin 600 MG TABCR PO SCH ×2 (08:27→20:16)
[2020-11-30] MEDS: METOPROLOL SUCC 25MG EXT REL TAB PO SCH (08:27)
[2020-11-30] MEDS: FERROUS SULFATE 325 MG TAB PO SCH ×2 (08:27→20:15)
[2020-11-30] MEDS: FINASTERIDE 5 MG TAB PO SCH (08:27)
[2020-11-30] MEDS: dexAMETHasone 6 MG in SYRINGE 0 ML IV SCH (08:27)
[2020-11-30] MEDS: CITALOPRAM 20 MG TAB PO SCH (08:27)
[2020-11-30] MEDS: NICOTINE 14 MG/24 HR PATCH TD SCH (08:28)
--- NOTE | 2020-11-30 10:42 | XRay Report ---
XR chest 1V portable CLINICAL HISTORY: ff up COVID pneumonia COMPARISON STUDY: Chest radiograph and chest CT November 27, 2020. FINDINGS: Lung volumes are normal. There is no pneumothorax or pleural effusion. There has been mild progression of bilateral airspace opacities. Cardiomediastinal silhouette is stable. IMPRESSION: Progression of bilateral airspace opacities consistent with multifocal pneumonia. ACT 112: Negative or not required by law. Electronically signed by: Carloz Rivera M.D. 11/30/2020 10:41 AM
[2020-11-30] MEDS: BENZONATATE 100 MG CAPSULE PO PRN (17:06)
--- NOTE | 2020-11-30 17:54 | Hospitalist Progress Note ---
Date of Service November 30, 2020 Assessment & Plan (1) Acute hypoxemic respiratory failure: Secondary to severe COVID-19 pneumonia Positive test from 9 days ago although patient claims to be symptomatic just in the last 3 days. -- seems to be improving clinically 94-95% on room air -- repeat CXR mild progression of PNA -- Remdesivir Day 3/5 Decadron Day 3/10 flutter valve, incentive spirometry Lovenox SC -- continue to monitor closely CAD status post stent/PVD hx bicuspid aortic valve/mild aortic regurgitation -- stable hypertension -- BP elevated likely from illness, steroids -- improving continue to monitor hyperlipidemia on statin Rx prediabetes -- a1c increased from 5.4 to 6.1 outpatient ff up DVT prophylaxis. Lovenox subcu Full code Disposition pending anticipate d/c home when medically stable Admission and Anticipated Discharge Date Admission Date: November 28, 2020 Subjective ff up for COVID 19 pneumonia seen resting in bed, comfortable states he continues to feel improved breathing improving still has dry cough no chest pain no other symptoms Review of Systems Review of Systems: All systems reviewed & are unremarkable except as noted in Subjective Physical Exam Physical Exam: General- oriented x 3, not in distress, speaks in sentences with no effort or accessory muscle use Eyes- anicteric Neck- no JVD Lungs- very mild rhonchi at the bases, no wheezing good air entry BL Heart- normal rate, regular rhythm; no murmurs Abdomen- normal bowel sounds, nondistended, soft, nontender Extremities- no pretibial edema, no calf tenderness Neuro- alert, oriented x 3; no gross focal neurologic deficits Skin- warm & dry Results & Data Results & Data ([facility]) Vital Signs (Past 12 Hours) Vital Signs Temp Pulse Pulse Resp BP Pulse Ox 11/30/20 15:25 62 11/30/20 15:14 36.5 C 55 L 18 145/73 H 94 11/30/20 12:14 36.6 C 57 L 18 145/69 H 94 11/30/20 08:25 36.5 C 61 18 151/90 H 94 11/30/20 07:00 51 L all noted and reviewed including below Laboratory Results Laboratory Results - last 24 hr 11/30/20 11/30/20 06:04 06:04 WBC 8.94 RBC 5.32 Hgb 15.7 Hct 46.5 MCV 87.4 MCH 29.5 MCHC 33.8 RDW Std Deviation 46.8 H RDW Coeff of Demetrice 14.6 H Plt Count 205 MPV 10.6 H Immature Gran % (Auto) 0.3 Neut % (Auto) 75.3 Lymph % (Auto) 16.8 [place] % (Auto) 7.4 Eos % (Auto) 0.0 Baso % (Auto) 0.2 Neut # (Auto) 6.73 H Lymph # (Auto) 1.50 [place] # (Auto) 0.66 H Eos # (Auto) 0.00 Baso # (Auto) 0.02 Immature Gran # (Auto) 0.03 H Sodium 142 Potassium 4.4 Chloride 110 H Carbon Dioxide 26 Anion Gap 6.0 BUN 22 H Creatinine 0.96 Est Cr Clr Drug Dosing 81.5 Est GFR ( Amer) 89.9 Est GFR (Non-Af Amer) 77.6 BUN/Creatinine Ratio 22.5 H Glucose 98 Calcium 8.9 Total Bilirubin 0.7 AST 39 H ALT 46 Alkaline Phosphatase 75 Total Protein 6.7 Albumin 2.9 L Globulin 3.8 Albumin/Globulin Ratio 0.8 L
[2020-11-30] MEDS: REMDESIVIR 100 MG in SODIUM CHLORIDE 0.9% 230 ML IV SCH (20:16)
[2020-11-30] MEDS: SODIUM CHLORIDE 0.9% 10ML FLUSH IV SCH (20:35)
[2020-12-01] MEDS: BENZONATATE 100 MG CAPSULE PO PRN (03:18)
[2020-12-01 07:04] LABS: Basophils # (auto) 0.01 K/uL (0-0.2); Basophils % (auto) 0.1 %; Hematocrit (blood only) 42.7 % (42-52); Hemoglobin 14.4 g/dL (14.0-18.0); Immature Granulocytes # (auto) 0.03 K/uL (0.00-0.02); Immature Granulocytes % (auto) 0.4 %; Lymphocytes % (auto) 12.3 %; Mean Corpuscular Hemoglobin 29.6 pg (25-34); Mean Corpuscular Hgb Conc 33.7 g/dL (32-36); Mean Corpuscular Volume 87.9 fL (80-100); Mean Platelet Volume 10.7 fL (7.4-10.4); Monocytes # (auto) 0.58 K/uL (0.11-0.59); Monocytes % (auto) 7.1 %; Neutrophils # (auto) 6.54 K/uL (1.4-6.5); Neutrophils % (auto) 80.1 %; Platelet Count 227 K/uL (130-400); RDW Coefficient of Variation 14.3 % (11.5-14.5); RDW Standard Deviation 46.4 fL (36.4-46.3); Red Blood Count 4.86 M/uL (4.7-6.1); White Blood Count 8.16 K/uL (4.8-10.8)
[2020-12-01 07:31] LABS: Albumin Level 2.6 gm/dl (3.4-5.0); BUN Creatinine Ratio 24.7 (10-20); Calcium 8.5 mg/dl (8.5-10.1); Creatinine Clr Calc Pharmacy 96.7 ml/min; Est GFR (African American) 101.5 ml/min; Est GFR (Non-African American) 87.6 ml/min; Potassium 4.1 mmol/L (3.5-5.1)
[2020-12-01 07:34] LABS: Albumin Globulin Ratio 0.8 (0.9-2); Bilirubin,Total 0.7 mg/dl (0.2-1); Globulin 3.4 gm/dl (2.5-4.0)
[2020-12-01] MEDS: ENOXAPARIN INJ 40 MG/0.4 ML SYR SQ SCH (08:47)
[2020-12-01] MEDS: dexAMETHasone 6 MG in SYRINGE 0 ML IV SCH (08:47)
[2020-12-01] MEDS: FERROUS SULFATE 325 MG TAB PO SCH ×2 (08:48→20:55)
[2020-12-01] MEDS: CITALOPRAM 20 MG TAB PO SCH (08:48)
[2020-12-01] MEDS: ASPIRIN 81 MG ECTAB PO SCH (08:48)
[2020-12-01] MEDS: PANTOprazole 40 MG TAB PO SCH (08:48)
[2020-12-01] MEDS: TAMSULOSIN HCL 0.4 MG CAP PO SCH (08:48)
[2020-12-01] MEDS: FINASTERIDE 5 MG TAB PO SCH (08:49)
[2020-12-01] MEDS: EZETIMIBE 10 MG TABLET PO SCH (08:49)
[2020-12-01] MEDS: guaiFENesin 600 MG TABCR PO SCH ×2 (08:49→20:55)
[2020-12-01] MEDS: ATORVASTATIN 40 MG TAB PO SCH (08:49)
[2020-12-01] MEDS: METOPROLOL SUCC 25MG EXT REL TAB PO SCH (08:49)
[2020-12-01] MEDS: NICOTINE 14 MG/24 HR PATCH TD SCH (09:04)
[2020-12-01] MEDS: HYDROCORTISONE HC 2.5% CRM 30GM TUBE EXT SCH ×2 (12:38→20:55)
--- NOTE | 2020-12-01 16:32 | Hospitalist Progress Note ---
Date of Service December 01, 2020 Assessment & Plan (1) Acute hypoxemic respiratory failure: Secondary to severe COVID-19 pneumonia Positive test from 9 days ago although patient claims to be symptomatic just in the last 3 days. -- continues to improve 91-94% on room air -- repeat CXR mild progression of PNA -- Remdesivir Day 4/5 Decadron Day 4 flutter valve, incentive spirometry Lovenox SC -- repeat CXR tomorrow -- continue to monitor closely CAD status post stent/PVD hx bicuspid aortic valve/mild aortic regurgitation -- stable hypertension -- BP elevated likely from illness, steroids -- add Amlodipine 2.5mg po daily hyperlipidemia on statin Rx prediabetes -- a1c increased from 5.4 to 6.1 outpatient ff up DVT prophylaxis. Lovenox subcu Full code Disposition pending anticipate d/c home when medically stable Admission and Anticipated Discharge Date Admission Date: November 28, 2020 Subjective ff up for COVID 19 pneumonia seen resting in bed, comfortable in good spirit states he continued to feel improved overall cough and breathing improving (+) painful hemorrhoids no bleeding no other symptoms Review of Systems Review of Systems: All systems reviewed & are unremarkable except as noted in Subjective Physical Exam Physical Exam: General- oriented x 3, not in distress, speaks in sentences with no effort or accessory muscle use Eyes- anicteric Neck- no JVD Lungs- very mild rhonchi at the bases no wheezing Heart- normal rate, regular rhythm; no murmurs Abdomen- normal bowel sounds, nondistended, soft, nontender Extremities- no pretibial edema, no calf tenderness Neuro- alert, oriented x 3; no gross focal neurologic deficits Skin- warm & dry Results & Data Results & Data ([facility]) Vital Signs (Past 12 Hours) Vital Signs Temp Pulse Resp BP Pulse Ox 12/01/20 15:23 36.4 C L 63 18 145/76 H 91 12/01/20 12:03 36.6 C 62 18 155/70 H 94 12/01/20 08:01 36.6 C 58 L 18 169/78 H 90 all noted and reviewed including below Laboratory Results Laboratory Results - last 24 hr 12/01/20 12/01/20 06:40 06:40 WBC 8.16 RBC 4.86 Hgb 14.4 Hct 42.7 MCV 87.9 MCH 29.6 MCHC 33.7 RDW Std Deviation 46.4 H RDW Coeff of Demetrice 14.3 Plt Count 227 MPV 10.7 H Immature Gran % (Auto) 0.4 Neut % (Auto) 80.1 Lymph % (Auto) 12.3 Ralls % (Auto) 7.1 Eos % (Auto) 0.0 Baso % (Auto) 0.1 Neut # (Auto) 6.54 H Lymph # (Auto) 1.00 L Ralls # (Auto) 0.58 Eos # (Auto) 0.00 Baso # (Auto) 0.01 Immature Gran # (Auto) 0.03 H Sodium 139 Potassium 4.1 Chloride 109 H Carbon Dioxide 27 Anion Gap 3.0 BUN 20 H Creatinine 0.81 Est Cr Clr Drug Dosing 96.7 Est GFR ( Amer) 101.5 Est GFR (Non-Af Amer) 87.6 BUN/Creatinine Ratio 24.7 H Glucose 100 H Calcium 8.5 Total Bilirubin 0.7 AST 32 ALT 41 Alkaline Phosphatase 68 Total Protein 6.0 L Albumin 2.6 L Globulin 3.4 Albumin/Globulin Ratio 0.8 L
[2020-12-01] MEDS: amLODIPine BESYLATE 5 MG TAB PO SCH (17:08)
[2020-12-01] MEDS: REMDESIVIR 100 MG in SODIUM CHLORIDE 0.9% 230 ML IV SCH (19:49)
[2020-12-01] MEDS: SODIUM CHLORIDE 0.9% 10ML FLUSH IV SCH (20:55)
[2020-12-02 08:04] LABS: Basophils # (auto) 0.02 K/uL (0-0.2); Basophils % (auto) 0.2 %; Eosinophils # (auto) 0.01 K/uL (0-0.5); Eosinophils % (auto) 0.1 %; Hemoglobin 14.5 g/dL (14.0-18.0); Immature Granulocytes # (auto) 0.09 K/uL (0.00-0.02); Lymphocytes # (auto) 1.17 K/uL (1.2-3.4); Lymphocytes % (auto) 12.8 %; Mean Corpuscular Hgb Conc 33.7 g/dL (32-36); Mean Platelet Volume 10.8 fL (7.4-10.4); Monocytes # (auto) 0.78 K/uL (0.11-0.59); Monocytes % (auto) 8.5 %; Neutrophils # (auto) 7.07 K/uL (1.4-6.5); Neutrophils % (auto) 77.4 %; Platelet Count 211 K/uL (130-400); RDW Coefficient of Variation 14.1 % (11.5-14.5); RDW Standard Deviation 44.7 fL (36.4-46.3); White Blood Count 9.14 K/uL (4.8-10.8)
--- NOTE | 2020-12-02 08:09 | XRay Report ---
XR chest 1V portable HISTORY: , Covid Pneumonia. Shortness of breath. COMPARISON: Chest 11/30/2020. FINDINGS: Patchy peripheral bilateral hazy airspace opacities are not significantly changed consisten t with a viral pneumonia. No pneumothorax. No pleural effusions. The heart remains mildly enlarged. IMPRESSION: No significant change in the bilateral multifocal airspace opacities consistent with a viral pneumoni a. ACT 112: Negative or not required by law. Electronically signed by: Malcolm Jang M.D. 12/02/2020 8:08 AM
[2020-12-02 08:27] LABS: Albumin Level 2.4 gm/dl (3.4-5.0); BUN Creatinine Ratio 29.9 (10-20); Calcium 8.7 mg/dl (8.5-10.1); Creatinine Clr Calc Pharmacy 105.9 ml/min; Est GFR (African American) 105.3 ml/min; Est GFR (Non-African American) 90.9 ml/min; Potassium 4.2 mmol/L (3.5-5.1)
[2020-12-02 08:30] LABS: Albumin Globulin Ratio 0.7 (0.9-2); Bilirubin,Total 0.7 mg/dl (0.2-1); Globulin 3.4 gm/dl (2.5-4.0); Total Protein 5.8 gm/dl (6.4-8.2)
[2020-12-02] MEDS: ENOXAPARIN INJ 40 MG/0.4 ML SYR SQ SCH (08:49)
[2020-12-02] MEDS: guaiFENesin 600 MG TABCR PO SCH (08:50)
[2020-12-02] MEDS: PANTOprazole 40 MG TAB PO SCH (08:50)
[2020-12-02] MEDS: FERROUS SULFATE 325 MG TAB PO SCH (08:50)
[2020-12-02] MEDS: CITALOPRAM 20 MG TAB PO SCH (08:50)
[2020-12-02] MEDS: ASPIRIN 81 MG ECTAB PO SCH (08:50)
[2020-12-02] MEDS: EZETIMIBE 10 MG TABLET PO SCH (08:51)
[2020-12-02] MEDS: ATORVASTATIN 40 MG TAB PO SCH (08:51)
[2020-12-02] MEDS: FINASTERIDE 5 MG TAB PO SCH (08:51)
[2020-12-02] MEDS: TAMSULOSIN HCL 0.4 MG CAP PO SCH (08:51)
[2020-12-02] MEDS: METOPROLOL SUCC 25MG EXT REL TAB PO SCH (08:51)
[2020-12-02] MEDS: amLODIPine BESYLATE 5 MG TAB PO SCH (08:52)
[2020-12-02] MEDS: dexAMETHasone 6 MG in SYRINGE 0 ML IV SCH (09:23)
[2020-12-02] MEDS: NICOTINE 14 MG/24 HR PATCH TD SCH (09:26)
[2020-12-02] MEDS: HYDROCORTISONE HC 2.5% CRM 30GM TUBE EXT SCH (09:26)
--- NOTE | 2020-12-02 12:15 | Hospitalist Progress Note ---
Date of Service Delayed entry Date of service noted below December 02, 2020 Assessment & Plan (1) Acute hypoxemic respiratory failure: Secondary to severe COVID-19 pneumonia --Patient completed 5-day course of remdesivir As well as 5-day course of Decadron IV --Patient gradually improved -- 91-94% on room air -- repeat CXR mild progression of PNA, but remains stable --Will need 5 more days of Decadron 6 mg p.o. to complete 10-day course Will need oxygen supplementation via 2 L of oxygen via nasal cannula, based on two-step exercise test --Encouraged to perform incentive spirometry and flutter valve at home Follow-up with PCP within 1 week CAD status post stent/PVD hx bicuspid aortic valve/mild aortic regurgitation -- stable hypertension -- BP elevated likely from illness, steroids -- added Amlodipine 2.5mg po daily Follow-up as an outpatient hyperlipidemia on statin Rx prediabetes -- a1c increased from 5.4 to 6.1 outpatient ff up DVT prophylaxis. Lovenox subcu Full code Disposition Discharge to home Follow-up with PCP within 1 week plan of care discussed with patient in detail and at length all questions answered He is understanding, agreeable, comfortable with the plan of care Admission and Anticipated Discharge Date Admission Date: November 27, 2020 Subjective Follow-up for COVID-19 pneumonia with hypoxia, etc. Seen resting in bed, comfortable, not in distress, watching TV, in good spirits States he feels much better overall Breathing is also much better, minimal cough No chest pain, leg pain Ambulate in the hallways, with minimal dyspnea, improved with oxygen supplementation Denies any other symptoms States that he is ready and would like to be discharged Review of Systems Review of Systems: All systems reviewed & are unremarkable except as noted in Subjective Physical Exam Physical Exam: General- oriented x 3, not in distress, speaks in sentences with no effort or accessory muscle use Eyes- anicteric Neck- no JVD Lungs-very minimal rhonchi bilaterally at the bases, no wheezing, good air entry bilaterally Heart- normal rate, regular rhythm; no murmurs Abdomen- normal bowel sounds, nondistended, soft, nontender Extremities- no pretibial edema, no calf tenderness Neuro- alert, oriented x 3; no gross focal neurologic deficits Skin- warm & dry Results & Data Results & Data ([facility]) Vital Signs (Past 12 Hours) Vital Signs Temp Pulse Pulse Pulse Pulse Pulse Pulse 12/02/20 08:28 36.5 C 58 L 12/02/20 07:47 82 83 82 80 12/02/20 07:13 45 L 12/02/20 05:08 36.6 C 46 L Resp Resp Resp Resp Resp BP Pulse Ox 12/02/20 08:28 16 162/70 H 93 12/02/20 07:47 20 20 18 22 12/02/20 07:13 12/02/20 05:08 19 133/68 96 Pulse Ox Pulse Ox Pulse Ox Pulse Ox 12/02/20 08:28 12/02/20 07:47 87 L 91 85 L 94 12/02/20 07:13 12/02/20 05:08 all noted and reviewed including below
--- NOTE | 2020-12-03 18:58 | Discharge Summary ---
Date of Service December 03, 2020 Admission HPI Per Admitting Provider History obtained from patient and records. Medical history significant for CAD status post stent, PVD, valvular heart disease (mild/bicuspid aortic valve on TTE 2020), hypertension, hyperlipidemia, prediabetes, anxiety/mood disorder. Last confinement December 2017 for NSTEMI. Nine days ago, patient requested for an outpatient COVID-19 test after exposure to a sick family member. Outpatient COVID-19 test was positive. Patient PCP recommended quarantine. 3 days history of dry cough, fever, chills, shortness of breath. No chest pain. Patient seen at PCP's office today. Outpatient labs and requested. ER evaluation recommended for worsening symptoms. O2 sats noted to be 89 at some point during ER stay. Patient received Decadron at the ER. Medical History as above Surgical History : Cystoscopy, nasal septum repair, hernia repair Family History : Heart disease, stroke Personal/Social history : Non-smoker, occasional EtOH intake, retired from construction work Admission Exam Per Admitting Provider Physical Exam: GENERAL: Comfortable, pleasant, obese, no respiratory distress SKIN: Normal color, warm HEENT: Alopecia, pink palpebral conjunctivae, no ptosis, dry buccal mucosa, nasal cannula in place NECK : Supple, no tenderness CHEST : Decreased breath sounds, no tenderness HEART : RRR, no obvious murmurs ABDOMEN: Some distention, nontender EXTREMITIES : No LE swelling/tenderness, no other conspicuous deformities noted NEUROLOGIC : Coherent, no facial asymmetry, no other gross focality Principal Diagnosis COVID-19 pneumonia with hypoxia Discharge Exam Physical Exam: General- oriented x 3, not in distress, speaks in sentences with no effort or accessory muscle use Eyes- anicteric Neck- no JVD Lungs-very minimal rhonchi bilaterally at the bases, no wheezing, good air entry bilaterally Heart- normal rate, regular rhythm; no murmurs Abdomen- normal bowel sounds, nondistended, soft, nontender Extremities- no pretibial edema, no calf tenderness Neuro- alert, oriented x 3; no gross focal neurologic deficits Skin- warm & dry Discharge Data Allergies Allergy/AdvReac Type Severity Reaction Status Date / Time No Known Allergies Allergy U Verified 11/27/20 20:48 Consultations 11/27/20 22:14 ED Decision to Admit Stat Ordered Studies 11/27/20 19:03 CT angio chest PE protocol Urgent There is adequate opacification within pulmonary artery. No intraluminal filling defect is seen within pulmonary artery branches to suggest pulmonary embolus. Pulmonary artery is nondilated. No evidence of right heart strain. Heart is normal in size without evidence of pericardial effusion. Minimal coronary calcifications are seen. There is no axial, supra clavicle or internal mammary lymphadenopathy seen. There are a few slightly prominent mediastinal lymph nodes are seen measuring up to 1.1 cm in short axis. No significant hilar lymphadenopathy seen. Visualized portion of thyroid gland shows no evidence of focal lesions. Esophagus is patulous. Mild hiatal hernia is seen. Aorta is normal in caliber with scattered calcifications of its wall. Tracheobronchial tree is patent. There are multifocal consolidative opacities intermixed with groundglass attenuation and mild septal thickening predominantly within peripheral aspect of bilateral lungs likely represent multifocal pneumonia/COVID. No pleural effusion is seen. Limited evaluation of upper abdomen shows few slightly hypoattenuating lesions within the right and left lobes, largest is measuring 1.8 cm seen within subcapsular aspect of the segment 2 (series 4 image 11). Evaluation of osseous structures shows mild degenerative changes of the spine. IMPRESSION: 1. No evidence of pulmonary embolus. 2. Multifocal pneumonia/COVID. Short-term follow-up with CT of the chest without IV contrast in 4-6 weeks is recommended to document resolution. 3. Partially visualized multiple hypoattenuating lesions within liver which were better evaluated on CT of the abdomen and pelvis performed on August 24, 2018. 4. Mild hiatal hernia. Hospital Course (1) Acute hypoxemic respiratory failure: Secondary to severe COVID-19 pneumonia --Patient completed 5-day course of remdesivir As well as 5-day course of Decadron IV --Patient gradually improved -- 91-94% on room air -- repeat CXR mild progression of PNA, but remains stable --Will need 5 more days of Decadron 6 mg p.o. to complete 10-day course Will need oxygen supplementation via 2 L of oxygen via nasal cannula, based on two-step exercise test --Encouraged to perform incentive spirometry and flutter valve at home Follow-up with PCP within [address] chest without IV contrast in 4 to 6 weeks to document resolution recommended by radiologist Abnormal CT chest findings There are a few slightly prominent mediastinal lymph nodes are seen measuring up to 1.1 cm in short axis. No significant hilar lymphadenopathy seen. There are multifocal consolidative opacities intermixed with groundglass attenuation and mild septal thickening predominantly within peripheral aspect of bilateral lungs likely represent multifocal pneumonia/COVID. No pleural effusion is seen. Limited evaluation of upper abdomen shows few slightly hypoattenuating lesions within the right and left lobes, largest is measuring 1.8 cm seen within subcapsular aspect of the segment 2 (series 4 image 11). Please refer to full report in the Ordered Studies section above Further work up, management, and ff up as outpatient CAD status post stent/PVD hx bicuspid aortic valve/mild aortic regurgitation -- stable hypertension -- BP elevated likely from illness, steroids -- added Amlodipine 2.5mg po daily Follow-up as an outpatient hyperlipidemia on statin Rx prediabetes -- a1c increased from 5.4 to 6.1 outpatient ff up Disposition Discharge to home Follow-up with PCP within 1 week plan of care discussed with patient in detail and at length all questions answered He is understanding, agreeable, comfortable with the plan of care Total Time Total Time Spent Total Time Spent (In Minutes): > 30 minutes Discharge Plan Discharge Items Patient Disposition: Home - Self-Care Reason For Visit: RESP FAILURE, COVID Discharge Diagnosis: COVID 19 PNEUMONIA WITH HYPOXIA Activity Comment: NO HEAVY EXERTION, AMBULATE FREQUENTLY Lifting: Wait until after follow-up appointment Exercise/Sports: Wait until after follow-up appointment Driving/Machine Use: NO DRIVING UNTIL RE-EVALUATED AND ALLOWED BY PRIMARY CARE PHYSICIAN Non-emergency contact: Primary Care Provider Call non-emergency contact if: you have any medication questions, your symptoms worsen and you have a fever Follow-up/Referrals: Susan Larios DO [Primary Care Provider] - (Date & Time 12/06/2020 3:10 PM Provider Susan Larios DO Department Family Medicine [facility] PLEASE NOTE THAT THIS IS A TELEPHONE APPOINTMENT. YOUR PHYSICIAN WILL CALL YOU AT THE APPOINTMENT TIME. IF YOU HAVE ANY QUESTIONS REGARDING THIS APPOINTMENT, PLEASE CALL ) Diet: Heart Healthy Addtl Attending Provider Instructions: YOUR NEW MEDICATIONS ARE: DECADRON-steroid for Covid pneumonia, always take with a full stomach MUCINEX, AND TESSALON PERLES NEEDED-for cough AMLODIPINE-for blood pressure control NICOTINE PATCH-for smoking cessation, do not use if you decide to continue smoking again Use oxygen supplement at 2 L via nasal cannula when ambulating. Your primary care doctor will guide you ON when you can stop using the supplemental oxygen. Continue to use the incentive spirometer-every hour and flutter valve-4 times a day. Always ambulate frequently to prevent blood clots. Always stay well-hydrated. No alcohol, smoking. Please follow-up with your primary care physician as outlined above. Call your primary care physician or return to the ER immediately with worsening of symptoms, including Worsening cough, shortness of breath, chest pain, leg swelling. Pending Studies at Discharge: No Stand-Alone Forms: My [facility] [address] [place], Smoking Cessation Medications and DC Order Prescriptions: New (DME) Oxygen Home Liters Per Minute 1 ea .Route UD Qty: 1 RF: 0 amlodipine [Norvasc] 5 mg Tablet 2.5 mg PO QAM Qty: 30 RF: 2 benzonatate [Tessalon Perles] 100 mg Capsule 100 mg PO TID PRN (Reason: cough) Qty: 20 RF: 0 guaifenesin [Mucinex] 600 mg Tablet Extended Release 12hr 600 mg PO Q12 Qty: 14 RF: 0 dexamethasone [Decadron] 6 mg tablet 6 mg PO DAILY Qty: 5 RF: 0 nicotine 7 mg/24 hr Patch 24 Hour 14 mg transdermal QAM Qty: 14 RF: 0 Continued aspirin 81 mg Tablet,Delayed Release (Dr/Ec) 81 mg PO QAM RF: 0 ferrous sulfate [Iron (ferrous sulfate)] 325 mg (65 mg iron) Tablet 325 mg PO BID RF: 0 atorvastatin 80 mg tablet 80 mg PO QAM RF: 0 citalopram 40 mg tablet 60 mg PO QAM RF: 0 omeprazole 40 mg capsule,delayed release(DR/EC) 40 mg PO QAM RF: 0 tamsulosin 0.4 mg Capsule 0.4 mg PO QAM RF: 0 metoprolol succinate 25 mg tablet extended release 24 hr 25 mg PO QAM RF: 0 finasteride 5 mg tablet 5 mg PO QAM RF: 0 ezetimibe 10 mg Tablet 10 mg PO QAM RF: 0 Discharge Orders: Discharge Order (Routine); Ordered 12/02/20 Ordered By: Sudarshan Keane/Other Patient Handouts: Exercise for a Healthier Heart, 5 Steps for Eating Healthier, A1C Admission Data Admit Date/Time: 11/27/20 23:28 Attending Provider: Sudarshan Wallace Admit Provider: Tone Alexander Primary Care Provider: Susan Larios Other Providers: Tone Alexander Other Interventions: Discharge Summary Assessment (RN) Last Done: 12/02/20 13:13
== END 2020-12-02 14:51 | disposition home or self-care (01) | DRG 177 ==
LOC: ED 18:34 → 2N 11-28 01:57

== ENCOUNTER 2020-12-10 11:52 | Inpatient (IN) ==
[2020-12-10 12:36] LABS: Basophils # (auto) 0.01 K/uL (0-0.2); Basophils % (auto) 0.1 %; Eosinophils # (auto) 0.06 K/uL (0-0.5); Eosinophils % (auto) 0.4 %; Hematocrit (blood only) 46.2 % (42-52); Hemoglobin 15.6 g/dL (14.0-18.0); Immature Granulocytes # (auto) 0.14 K/uL (0.00-0.02); Immature Granulocytes % (auto) 0.9 %; Lymphocytes # (auto) 0.95 K/uL (1.2-3.4); Lymphocytes % (auto) 6.4 %; Mean Corpuscular Hemoglobin 29.5 pg (25-34); Mean Corpuscular Hgb Conc 33.8 g/dL (32-36); Mean Corpuscular Volume 87.5 fL (80-100); Mean Platelet Volume 10.9 fL (7.4-10.4); Monocytes # (auto) 1.31 K/uL (0.11-0.59); Monocytes % (auto) 8.9 %; Neutrophils # (auto) 12.27 K/uL (1.4-6.5); Neutrophils % (auto) 83.3 %; Platelet Count 189 K/uL (130-400); RDW Coefficient of Variation 14.8 % (11.5-14.5); RDW Standard Deviation 47.2 fL (36.4-46.3); Red Blood Count 5.28 M/uL (4.7-6.1); White Blood Count 14.74 K/uL (4.8-10.8)
[2020-12-10 12:50] LABS: Partial Thromboplastin Time 26.4 Seconds (21.0-31.0); Prothrombin Time 10.4 Seconds (9.0-12.0)
[2020-12-10 12:55] LABS: Alanine Aminotransferase 43 U/L (12-78); Albumin Level 2.3 gm/dl (3.4-5.0); Aspartate Aminotransferase 18 U/L (15-37); BUN Creatinine Ratio 20.9 (10-20); Blood Urea Nitrogen 20 mg/dl (7-18); Calcium 8.9 mg/dl (8.5-10.1); Carbon Dioxide 27 mmol/L (21-32); Chloride 107 mmol/L (98-107); Creatinine Clr Calc Pharmacy 79.4 ml/min; Est GFR (African American) 88.8 ml/min; Est GFR (Non-African American) 76.6 ml/min; Glucose 139 mg/dl (70-99); Magnesium 2.1 mg/dl (1.8-2.4); Potassium 4.1 mmol/L (3.5-5.1); Sodium 138 mmol/L (136-145)
--- NOTE | 2020-12-10 12:55 | XRay Report ---
XR chest 1V portable CLINICAL HISTORY: Shortness of breath COMPARISON STUDY: 12/02/2020 FINDINGS: The heart is borderline enlarged. There is slight progression in the multifocal bilateral p ulmonary airspace opacities consistent with a multifocal pneumonia. There are no large pleural effusi ons. There is no pneumothorax. There is no overt failure.[ IMPRESSION: Slight progression in the multifocal bilateral pulmonary airspace opacities consistent wi th a multifocal pneumonia ACT 112: Negative or not required by law. Electronically signed by: Edward Webb M.D. 12/10/2020 12:54 PM
[2020-12-10 12:59] LABS: Albumin Globulin Ratio 0.6 (0.9-2); Alkaline Phosphatase 88 U/L (45-117); Bilirubin,Total 1.1 mg/dl (0.2-1); Globulin 4.1 gm/dl (2.5-4.0); Total Protein 6.4 gm/dl (6.4-8.2); Troponin I < 0.015 ng/ml (0-0.045)
--- NOTE | 2020-12-10 13:06 | Electrocardiogram Report ---
Test Reason : Blood Pressure : / mmHG Vent. Rate : 077 BPM Atrial Rate : 077 BPM P-R Int : 132 ms QRS Dur : 086 ms QT Int : 384 ms P-R-T Axes : 042 -22 -07 degrees QTc Int : 434 ms Normal sinus rhythm Voltage criteria for left ventricular hypertrophy Abnormal ECG When compared with ECG of 27-NOV-2020 19:22, No significant change was found Confirmed by Eugenio Wade ([id number]) on 12/10/2020 1:06:41 PM Referred By: Confirmed By:Eugenio Wade
[2020-12-10] MEDS ORDERED: OPTIRAY 350 500ml IV ONE (14:39)
--- NOTE | 2020-12-10 14:48 | CT Scan Report ---
CT ANGIOGRAM OF THE CHEST CLINICAL HISTORY: Chest pain and shortness of breath. Possible pulmonary embolism. COMPARISON STUDY: 11/27/2020 TECHNIQUE: Following the IV administration of 115 mL of Optiray, CT angiogram of the thorax was perfo rmed from the thoracic inlet to the lung bases utilizing the pulmonary embolus protocol. Images are r eviewed in the axial, sagittal, and coronal planes. IV contrast was administered without complication . MIP imaging was performed. A dose lowering technique was utilized adhering to the principles of [place] BONIFAC[place]. CT DOSE: 501.68 mGycm FINDINGS: There are mildly enlarged mediastinal lymph nodes, likely reactive. There was no evidence of thoracic aortic dilatation. There are multiple bilateral pulmonary artery filling defects, indicative of acute bilateral pulmonar y embolism. These were not present on the preceding study. There is no convincing evidence of signifi cant right ventricular strain. No pleural effusions are visualized. There are progressive bilateral pulmonary airspace opacities consistent with a worsening multifocal p neumonia. There is a stable 13 mm right lower lobe subpleural bleb. There is scattered hepatic hypodensities, statistically representing cysts. IMPRESSION: 1. Interval development of bilateral multilobar pulmonary artery filling defects indicative of acute bilateral pulmonary embolism 2. Progressive multifocal pulmonary airspace opacities consistent with a progressive multifocal pneum onia 3. Mild adenopathy, likely reactive ACT 112: Negative or not required by law. Electronically signed by: Edward Webb M.D. 12/10/2020 2:47 PM
[2020-12-10] MEDS ORDERED: Heparin IV Adult Wt-Based Standard WITH Bolus Protocol IV STA (15:38)
[2020-12-10] MEDS ORDERED: HEPARIN SOD (PORCINE) 1000 UNIT/ML IV ONE (15:53)
[2020-12-10] MEDS ORDERED: HEPARIN SODIUM/DEXTROSE 25,000 UNITS/500 ML BAG IV SCH (15:53)
[2020-12-10] MEDS ORDERED: PIPERACILL/TAZOBAC CONSULT ACTIVE PRN ×2 (16:22→18:43)
[2020-12-10] MEDS ORDERED: VANCOMYCIN CONSULT ACTIVE PRN ×2 (16:22→18:43)
--- NOTE | 2020-12-10 16:22 | History & Physical Report ---
Date of Service December 10, 2020 Assessment & Plan (1) Acute hypoxemic respiratory failure: (2) Hypoxia: (3) SOB (shortness of breath): (4) Pneumonia: (5) COVID-19: (6) Pulmonary embolism: (7) HTN (hypertension): (8) Heart disease: (9) H/O heart artery stent: Patient placed on a heparin drip with bolus, continue appropriate outpatient medications, vancomycin and Zosyn, resume Decadron IV, patient finished a course of remdesivir, place in isolation on PCU, oxygen, inhalers, no need for DVT prophylaxis with IV heparin. History of Present Illness Chief Complaint: Shortness of breath and right-sided chest pain Primary Care Provider: Susan Larios DO 75-year-old male with a past medical history of COVID-19 pneumonia, respiratory failure with hypoxia, hypertension, coronary disease, history of cardiac stent, bladder diverticulum, bladder stone, urinary tract infection who was admitted on November 27 and discharged on December 03 after being treated for COVID-19 pneumonia with remdesivir and Decadron. Patient had a positive Covid test 9 days prior to his previous admission but developed symptoms 3 days prior to his previous admissio n. Today he comes back with shortness of breath and right-sided chest pain requiring 3 L of oxygen to keep him oxygenated in the emergency room. He was found to have bilateral PEs and heparin drip was started. He was also found to have a leukocytosis and pneumonia on CT scans. He will be admitted as an inpatient placed on IV vancomycin and Zosyn and we will continue his Decadron. We will place him in isolation for now. We will monitor daily labs. Allergies Allergy/AdvReac Type Severity Reaction Status Date / Time No Known Allergies Allergy U Verified 12/10/20 13:55 Home Medications Medication Instructions Recorded Confirmed Type atorvastatin 80 mg PO QAM 10/22/18 12/10/20 History citalopram 60 mg PO QAM 10/22/18 12/10/20 History ezetimibe 10 mg PO QAM 10/22/18 12/10/20 History finasteride 5 mg PO QAM 10/22/18 12/10/20 History metoprolol succinate 25 mg PO QAM 10/22/18 12/10/20 History omeprazole 40 mg PO QAM 10/22/18 12/10/20 History tamsulosin 0.4 mg PO QAM 10/22/18 12/10/20 History aspirin 81 mg PO QAM 11/21/18 12/10/20 History ferrous sulfate [Iron (ferrous 325 mg PO BID 11/21/18 12/10/20 History sulfate)] amlodipine [Norvasc] 2.5 mg PO QAM #30 tab 12/02/20 12/10/20 Rx benzonatate [Tessalon Perles] 100 mg PO TID PRN #20 cap 12/02/20 12/10/20 Rx Past Med/Surg History Medical History (Updated 12/10/20 @ 16:20 by Dawson Richards DO) Bladder stone BPH (benign prostatic hyperplasia) GERD (gastroesophageal reflux disease) Heart disease HTN (hypertension) Hyperlipidemia Myocardial infarction X2 - Stents placed after first MT Urinary tract infection Surgical History H/O heart artery stent History of cardiac cath X2 History of colonoscopy History of cystoscopy LASER LITHO 11/16/13 - MAC #3, ETT #8.0 cuffed, Grade 2 View History of herniorrhaphy Right inguinal History of nasal surgery Age 17 - for nasal fracture Family History Other Family history non-contributory Social History Smoking Status: Never smoker Cigarettes Per Day: 0; Second Hand Exposure: No; Hx Alcohol Use: No Hx Substance Use: No Preferred Language: Spanish Communication Ability: Effective Machine Taper Required: No Beliefs That Will Affect Care: None Current Living Situation: Spouse current occupation: mail delivery Feels Safe at Home: Yes Assistive Devices: None Review of Systems Review of Systems: ROS-No Headache, No Visual Changes, No Nausea, No Vomiting, No Fever, No Chills, No Neck Pain or Stiffness, R Sided Chest Pain, + Pleuritic CP, No Palpitations, + SOB, + BRAGA, + Cough, No Sputum, No Wheezing, No Abdominal Pain, No Diarrhea, No Hematemesis, No Hemoptysis, No Unexpected Weight Loss, No Flank pain, No Melena, No Hematochezia, No Frequency, No Urgency, No Burning, No Hematuria, No Rashes, No Diaphoresis. Appetite is Normal Physical Exam Gen-AAO x 3, NAD, Afebrile, On O2 Mask Head-NCAT, EOMI, PERRLA, Anicteric Sclera, No Posterior Pharyngeal Erythema Neck-Supple, No JVD, No Thyromegaly, No Masses, No LAD, No Bruits Lungs-Clear to Auscultation Bilaterally, No Rales, No Rhonchi, No Wheezing, No Crepitus Chest-No S4, +S1, +S2, No S3, No Murmurs, No Rubs, No Gallops, No Ectopy Abdomen-Soft, Bowel Sounds Present, Non Tender, Non Distended, No Hepatomegaly, No Splenomegaly, No Palpable Masses, No Rebound, No Rigidity, No Guarding Musculoskeletal-Full Range of Motion Bilaterally, No CVAT Extremities-No Cyanosis, No Clubbing, No Edema Nuero-Cranial Nerves II-XII grossly intact, Motor WNL, DTRs WNL, Strength WNL, Non Focal Psych-Normal Mood Results & Data Results & Data ([facility]) Vital Signs (Past 12 Hours) Vital Signs Temp Pulse Resp BP Pulse Ox 12/10/20 15:20 62 20 98 12/10/20 15:14 72 18 97 12/10/20 15:00 65 20 145/69 H 99 12/10/20 14:50 66 17 99 12/10/20 14:00 70 125/69 12/10/20 13:30 73 138/73 98 12/10/20 13:00 75 21 173/84 H 98 12/10/20 12:40 75 19 12/10/20 12:30 74 20 145/73 H 12/10/20 11:54 36.4 C L 108 H 26 H 136/64 93 Allergies No Known Allergies Allergy (U, Verified 12/10/20 13:55) Height/Weight/Isolation Height 5 ft 10.5 in Weight 98.7 kg Chemistry 12/10/20 12:11 Sodium 138 Potassium 4.1 Chloride 107 Carbon Dioxide 27 Anion Gap 5.0 BUN 20 H Creatinine 0.97 Glucose 139 H Code Status & VTE Plan Code Status Full code VTE Prophylaxis Plan VTE Prophylaxis will be ordered: No (1) Pneumonia Laterality: bilateral Lung location: unspecified part of lung Pneumonia type: due to unspecified organism Qualified Code(s): J18.9 - Pneumonia, unspecified organism
[2020-12-10] MEDS ORDERED: VANCOMYCIN HCL 2,250 MG in SODIUM CHLORIDE 0.9% 500 ML IV STA (16:35)
[2020-12-10] MEDS ORDERED: PIPERACILLIN/TAZOBACTAM 3.375 GM in DEXTROSE 5% 100 ML/100 ML BAG IV STA (16:36)
--- NOTE | 2020-12-10 17:22 | Emergency Department Note ---
History of Present Illness General Chief complaint: Shortness of Breath/Dyspnea Stated complaint: SHORTNESS OF BREATH - REF BY DOCTOR Time Seen by Provider: 12/10/20 12:43 Source: patient and EMS Mode of arrival: ambulatory Limitations: no limitations History of Present Illness Provider complaint: Right-sided chest pain, recent Covid diagnosis Maximum Pain Intensity: 5 This patient is a 75-year-old male who presents to the emergency department with complaints of right-sided chest pain. He states he was diagnosed with Covid November 17 and was hospitalized for pneumonia. He has been on oxygen at home since that time. Last night while the patient was resting he noticed a right-sided chest discomfort. This morning he told his , noting it is more painful when he wears to cough or take a deep breath. He does seem to be more short of breath. Patient states he does not smoke cigarettes but he does chew tobacco. He denies any significant fevers. Home Medications Medication Instructions Recorded Confirmed Type atorvastatin 80 mg PO QAM 10/22/18 12/10/20 History citalopram 60 mg PO QAM 10/22/18 12/10/20 History ezetimibe 10 mg PO QAM 10/22/18 12/10/20 History finasteride 5 mg PO QAM 10/22/18 12/10/20 History metoprolol succinate 25 mg PO QAM 10/22/18 12/10/20 History omeprazole 40 mg PO QAM 10/22/18 12/10/20 History tamsulosin 0.4 mg PO QAM 10/22/18 12/10/20 History aspirin 81 mg PO QAM 11/21/18 12/10/20 History ferrous sulfate [Iron (ferrous 325 mg PO BID 11/21/18 12/10/20 History sulfate)] amlodipine [Norvasc] 2.5 mg PO QAM #30 tab 12/02/20 12/10/20 Rx benzonatate [Tessalon Perles] 100 mg PO TID PRN #20 cap 12/02/20 12/10/20 Rx Allergies Allergy/AdvReac Type Severity Reaction Status Date / Time No Known Allergies Allergy U Verified 12/10/20 13:55 Past Med/Surg History Medical History Bladder stone BPH (benign prostatic hyperplasia) GERD (gastroesophageal reflux disease) Heart disease HTN (hypertension) Hyperlipidemia Myocardial infarction X2 - Stents placed after first AL Urinary tract infection Surgical History H/O heart artery stent History of cardiac cath X2 History of colonoscopy History of cystoscopy LASER LITHO 11/16/13 - MAC #3, ETT #8.0 cuffed, Grade 2 View History of herniorrhaphy Right inguinal History of nasal surgery Age 17 - for nasal fracture Family History Other Family history non-contributory Social History Smoking Status: Never smoker Cigarettes Per Day: 0; Second Hand Exposure: No; Do You Dip or Chew Tobacco: Yes; Tobacco Cessation Education Requested by Patient: No Hx Alcohol Use: No Hx Substance Use: No Preferred Language: Khmer Communication Ability: Effective Claims Examiner Required: No Beliefs That Will Affect Care: None Current Living Situation: Spouse current occupation: mail delivery Other Information That Helps Us Care for You: No Feels Safe at Home: Yes Safety Concerns: Feels Safe At This Time Assistive Devices: None Review of Systems See HPI for pertinent positives & negatives. and A total of 10 systems reviewed and were otherwise negative Physical Exam Vital Signs Vital Signs - 24 hr 12/10/20 11:54 12/10/20 12:30 12/10/20 12:35 Temperature 36.4 C L Temperature Source Temporal Artery Scan Pulse Rate 108 H 74 Pulse Rate from SpO2 Sensor Respiratory Rate 26 H 20 Blood Pressure 136/64 145/73 H Blood Pressure Mean 88 97 Pulse Oximetry 93 Oxygen Delivery Method Aerosol Mask Room Air Oxygen Flow Rate 3 3 Sepsis Recent Fever Within 48 Hours No Sepsis New/Unexplained Change in Mental Status N/A Sepsis Action Taken by Nursing Physician Notified 12/10/20 12:40 12/10/20 13:00 12/10/20 13:30 Temperature Temperature Source Pulse Rate 75 75 73 Pulse Rate from SpO2 Sensor 74 72 Respiratory Rate 19 21 Blood Pressure 173/84 H 138/73 Blood Pressure Mean 113 94 Pulse Oximetry 98 98 Oxygen Delivery Method Oxygen Flow Rate Sepsis Recent Fever Within 48 Hours Sepsis New/Unexplained Change in Mental Status Sepsis Action Taken by Nursing 12/10/20 14:00 12/10/20 14:50 12/10/20 15:00 Temperature Temperature Source Pulse Rate 70 66 65 Pulse Rate from SpO2 Sensor 66 65 Respiratory Rate 17 20 Blood Pressure 125/69 145/69 H Blood Pressure Mean 87 94 Pulse Oximetry 99 99 Oxygen Delivery Method Oxymask Oxymask Oxygen Flow Rate 3 3 Sepsis Recent Fever Within 48 Hours Sepsis New/Unexplained Change in Mental Status Sepsis Action Taken by Nursing 12/10/20 15:14 12/10/20 15:20 12/10/20 15:30 Temperature Temperature Source Pulse Rate 72 62 65 Pulse Rate from SpO2 Sensor 71 63 65 Respiratory Rate 18 20 21 Blood Pressure 150/76 H Blood Pressure Mean 100 Pulse Oximetry 97 98 98 Oxygen Delivery Method Oxymask Oxymask Oxygen Flow Rate 3 3 Sepsis Recent Fever Within 48 Hours Sepsis New/Unexplained Change in Mental Status Sepsis Action Taken by Nursing 12/10/20 15:40 12/10/20 15:50 12/10/20 16:00 Temperature Temperature Source Pulse Rate 65 66 67 Pulse Rate from SpO2 Sensor 66 66 Respiratory Rate 22 22 20 Blood Pressure 146/60 H Blood Pressure Mean 88 Pulse Oximetry 99 98 Oxygen Delivery Method Oxygen Flow Rate Sepsis Recent Fever Within 48 Hours Sepsis New/Unexplained Change in Mental Status Sepsis Action Taken by Nursing 12/10/20 16:10 Temperature Temperature Source Pulse Rate 67 Pulse Rate from SpO2 Sensor Respiratory Rate 20 Blood Pressure Blood Pressure Mean Pulse Oximetry Oxygen Delivery Method Oxygen Flow Rate Sepsis Recent Fever Within 48 Hours Sepsis New/Unexplained Change in Mental Status Sepsis Action Taken by Nursing Vital signs reviewed. General: Elderly, somewhat ill-appearing 75-year-old male, no significant distress on an oxy mask HEENT: No scleral icterus, PERRLA, neck supple. Atraumatic. Cardiovascular: Regular rate and rhythm, no extra sounds. Pulmonary: Crackles throughout the lung smith bilaterally, more prominent at the bases. Normal work of breathing on oxygen Abdomen: Soft, nontender, nondistended, positive bowel sounds. Musculoskeletal: Atraumatic, no peripheral edema. Nontender to palpation of the calves bilaterally. Neurologic: Patient awake alert and oriented x 3. Skin: Warm, dry, no rash Course Administered Medications Acetaminophen (Acetaminophen 325 Mg Tab) 650 mg PO Q4H PRN PRN Reason: Pain or Fever Stop: 01/09/21 18:42 Last Admin: 12/10/20 21:38 Dose: 650 mg Documented by: [id number] Amlodipine Besylate (Amlodipine Besylate 5 Mg Tab) 2.5 mg PO [facility] Stop: 01/10/21 08:59 Last Admin: 12/11/20 08:37 Dose: 2.5 mg Documented by: [id number] Apixaban (Apixaban 5 Mg Tablet) 10 mg PO BID [facility] Stop: 12/18/20 09:01 Last Admin: 12/11/20 21:09 Dose: 10 mg Documented by: [id number] Aspirin (Aspirin 81 Mg Ectab) 81 mg PO [facility] Stop: 01/10/21 08:59 Last Admin: 12/11/20 08:38 Dose: 81 mg Documented by: [id number] Atorvastatin Calcium (Atorvastatin 40 Mg Tab) 80 mg PO [facility] Stop: 01/10/21 08:59 Last Admin: 12/11/20 08:38 Dose: 80 mg Documented by: [id number] Citalopram Hydrobromide (Citalopram 20 Mg Tab) 60 mg PO [facility] Stop: 01/10/21 08:59 Last Admin: 12/11/20 08:38 Dose: 60 mg Documented by: [id number] Ezetimibe (Ezetimibe 10 Mg Tablet) 10 mg PO [facility] Stop: 01/10/21 08:59 Last Admin: 12/11/20 08:38 Dose: 10 mg Documented by: [id number] Ferrous Sulfate (Ferrous Sulfate 325 Mg Tab) 325 mg PO BID [facility] Stop: 01/09/21 20:59 Last Admin: 12/11/20 21:09 Dose: 325 mg Documented by: [id number] Admin: 12/11/20 08:37 Dose: 325 mg Documented by: [id number] Admin: 12/10/20 21:38 Dose: 325 mg Documented by: [id number] Finasteride (Finasteride 5 Mg Tab) 5 mg PO [facility] Stop: 01/10/21 08:59 Last Admin: 12/11/20 08:38 Dose: 5 mg Documented by: [id number] Metoprolol Succinate (Metoprolol Succ 25mg Ext Rel Tab) 25 mg PO [facility] Stop: 01/10/21 08:59 Last Admin: 12/11/20 08:37 Dose: 25 mg Documented by: [id number] Pantoprazole Sodium (Pantoprazole 40 Mg Tab) 40 mg PO [facility]; Protocol Stop: 01/10/21 08:59 Last Admin: 12/11/20 08:38 Dose: 40 mg Documented by: [id number] Tamsulosin HCl (Tamsulosin Hcl 0.4 Mg Cap) 0.4 mg PO [facility] Stop: 01/10/21 08:59 Last Admin: 12/11/20 08:38 Dose: 0.4 mg Documented by: [id number] Discontinued Medications Heparin Sodium (Porcine) (Heparin Sod (Porcine) 1000 Unit/Ml) 1 units IV NOW ONE Stop: 12/10/20 15:54 Last Admin: 12/10/20 16:20 Dose: 5,000 units Documented by: [id number] Cosigned by: [id number] Heparin Sodium/Dextrose (Heparin Iv Adult Wt-Based Standard With Bolus Protocol) 1 ea IV NOW STA; Protocol Stop: 12/10/20 15:39 Last Admin: 12/10/20 16:31 Dose: Not Given Documented by: [id number] Heparin Sodium/Dextrose (Heparin Iv Adult Wt-Based Standard *No* Bolus Protocol) 1 ea N/A ONE ONE; Protocol Stop: 12/10/20 18:44 Last Admin: 12/11/20 07:16 Dose: Not Given Documented by: [id number] Heparin Sodium/Dextrose (Heparin Sodium/Dextrose) 25,000 units in 500 mls @ 30 mls/hr IV .[id number] [facility]; Protocol Stop: 01/09/21 15:52 Last Titration: 12/11/20 07:16 Dose: 0 units/hr, 0 mls/hr Documented by: [id number] Cosigned by: [id number] Titration: 12/10/20 18:54 Dose: 1,500 units/hr, 30 mls/hr Documented by: [id number] Cosigned by: [id number] Admin: 12/10/20 16:21 Dose: 1,500 units/hr, 30 mls/hr Documented by: [id number] Cosigned by: [id number] Piperacillin Sod/Tazobactam (Sod 3.375 gm/ Dextrose) 100 ml in 115 mls @ 230 mls/hr IV NOW STA Stop: 12/10/20 17:05 Last Infusion: 12/10/20 18:41 Dose: 0 mls/hr Documented by: [id number] Admin: 12/10/20 17:32 Dose: 230 mls/hr Documented by: [id number] Vancomycin HCl 2,250 mg/ (Sodium Chloride) 545 mls @ 200 mls/hr IV NOW STA Stop: 12/10/20 19:18 Last Infusion: 12/10/20 22:20 Dose: 200 mls/hr Documented by: [id number] Admin: 12/10/20 17:32 Dose: 200 mls/hr Documented by: [id number] Heparin Sodium/Dextrose (Heparin Sodium/Dextrose) 25,000 units in 500 mls @ 22 mls/hr IV .[id number] [facility]; Protocol Stop: 12/11/20 20:00 Last Titration: 12/11/20 20:00 Dose: 0 units/hr, 0 mls/hr Documented by: [id number] Cosigned by: [id number] Titration: 12/11/20 16:22 Dose: 1,100 units/hr, 22 mls/hr Documented by: [id number] Cosigned by: [id number] Admin: 12/11/20 14:14 Dose: 1,000 units/hr, 20 mls/hr Documented by: [id number] Cosigned by: [id number] Titration: 12/11/20 14:14 Dose: 1,000 units/hr, 20 mls/hr Documented by: [id number] Cosigned by: [id number] Titration: 12/11/20 09:20 Dose: 1,000 units/hr, 20 mls/hr Documented by: [id number] Cosigned by: [id number] Titration: 12/11/20 08:20 Dose: 0 units/hr, 0 mls/hr Documented by: [id number] Cosigned by: [id number] Titration: 12/11/20 07:08 Dose: 1,250 units/hr, 25 mls/hr Documented by: [id number] Cosigned by: [id number] Titration: 12/11/20 01:04 Dose: 1,250 units/hr, 25 mls/hr Documented by: [id number] Cosigned by: [id number] Titration: 12/10/20 23:57 Dose: 0 units/hr, 0 mls/hr Documented by: [id number] Cosigned by: [id number] Admin: 12/10/20 22:21 Dose: 1,500 units/hr, 30 mls/hr Documented by: [id number] Cosigned by: [id number] Dexamethasone 6 mg/ Syringe 1.5 mls @ 1 mls/min IV Q24H TEZ Stop: 01/09/21 19:29 Last Admin: 12/10/20 21:39 Dose: 1 mls/min Documented by: [id number] Vancomycin HCl 1,250 mg/ (Sodium Chloride) 275 mls @ 200 mls/hr IV Q12H TE[facility] Stop: 12/18/20 05:59 Last Infusion: 12/11/20 08:32 Dose: 0 mls/hr Documented by: [id number] Admin: 12/11/20 06:23 Dose: 200 mls/hr Documented by: [id number] Piperacillin Sod/Tazobactam (Sod 3.375 gm/ Dextrose) 115 mls @ 28.75 mls/hr IV Q8H [facility]; Protocol Stop: 12/17/20 21:59 Last Infusion: 12/11/20 10:53 Dose: 0 mls/hr Documented by: [id number] Admin: 12/11/20 06:23 Dose: 28.8 mls/hr Documented by: [id number] Infusion: 12/11/20 02:14 Dose: 0 mls/hr Documented by: [id number] Admin: 12/10/20 21:39 Dose: 28.8 mls/hr Documented by: [id number] Ioversol (Optiray 350 500ml) 115 ml IV ONCE ONE Stop: 12/10/20 14:40 Last Admin: 12/10/20 14:40 Dose: 115 ml Documented by: [id number] Miscellaneous (Heparin Drip Stop Order) 1 ea N/A TODAY@1999 ONE Stop: 12/11/20 20:01 Last Admin: 12/11/20 20:00 Dose: 1 ea Documented by: [id number] Critical Care Time Critical Care Time: Yes I have personally spent greater than 35 minutes of critical care time in the direct management of this patient. This includes bedside care, interpretation of diagnostic studies, and testing, discussion with consultants, patient, and family members, and other required patient management activities. This 35 minutes is in excess of all separately billable procedures. Medical Decision Making Differential Diagnosis Reactive airway disease, pneumonia, pneumothorax, COPD, CHF, infections, cardiac ischemia, pulmonary embolism, musculoskeletal, gastrointestinal, as well as other pathologies. Medical Records Attestation: I reviewed the patient's medical records. Home Medications Current Medication List: was personally reviewed by me Laboratory Data Attestation: I reviewed the patient's lab results. Result diagrams: 12/11/20 06:57 12/11/20 06:57 Lab Results 12/10/20 12/10/20 12/10/20 Range/Units 12:11 12:11 12:11 WBC 14.74 H (4.8-10.8) K/uL RBC 5.28 (4.7-6.1) M/uL Hgb 15.6 (14.0-18.0) g/dL Hct 46.2 (42-52) % MCV 87.5 (80-100) fL MCH 29.5 (25-34) pg MCHC 33.8 (32-36) g/dL RDW Std Deviation 47.2 H (36.4-46.3) fL RDW Coeff of Demetrice 14.8 H (11.5-14.5) % Plt Count 189 (130-400) K/uL MPV 10.9 H (7.4-10.4) fL Immature Gran % (Auto) 0.9 % Neut % (Auto) 83.3 % Lymph % (Auto) 6.4 % [place] % (Auto) 8.9 % Eos % (Auto) 0.4 % Baso % (Auto) 0.1 % Neut # (Auto) 12.27 H (1.4-6.5) K/uL Lymph # (Auto) 0.95 L (1.2-3.4) K/uL [place] # (Auto) 1.31 H (0.11-0.59) K/uL Eos # (Auto) 0.06 (0-0.5) K/uL Baso # (Auto) 0.01 (0-0.2) K/uL Immature Gran # (Auto) 0.14 H (0.00-0.02) K/uL ESR (0-20) mm/hr PT 10.4 (9.0-12.0) Seconds INR 1.0 (0.9-1.1) APTT 26.4 (21.0-31.0) Seconds PTT Ratio 1.0 Sodium 138 (136-145) mmol/L Potassium 4.1 (3.5-5.1) mmol/L Chloride 107 (98-107) mmol/L Carbon Dioxide 27 (21-32) mmol/L Anion Gap 5.0 (3-11) BUN 20 H (7-18) mg/dl Creatinine 0.97 (0.6-1.4) mg/dl Est Cr Clr Drug Dosing 79.4 ml/min Est GFR ( Amer) 88.8 ml/min Est GFR (Non-Af Amer) 76.6 ml/min BUN/Creatinine Ratio 20.9 H (10-20) Glucose 139 H (70-99) mg/dl Calcium 8.9 (8.5-10.1) mg/dl Magnesium 2.1 (1.8-2.4) mg/dl Total Bilirubin 1.1 H (0.2-1) mg/dl AST 18 (15-37) U/L ALT 43 (12-78) U/L Alkaline Phosphatase 88 (45-117) U/L Troponin I < 0.015 (0-0.045) ng/ml C-Reactive Protein (0-0.29) mg/dl Total Protein 6.4 (6.4-8.2) gm/dl Albumin 2.3 L (3.4-5.0) gm/dl Globulin 4.1 H (2.5-4.0) gm/dl Albumin/Globulin Ratio 0.6 L (0.9-2) Procalcitonin (0-0.5) ng/ml COVID-19 Eval Order SARS-CoV-2 (PCR) (Negative) 12/10/20 12/10/20 12/10/20 Range/Units 12:11 12:11 12:11 WBC (4.8-10.8) K/uL RBC (4.7-6.1) M/uL Hgb (14.0-18.0) g/dL Hct (42-52) % MCV (80-100) fL MCH (25-34) pg MCHC (32-36) g/dL RDW Std Deviation (36.4-46.3) fL RDW Coeff of Demetrice (11.5-14.5) % Plt Count (130-400) K/uL MPV (7.4-10.4) fL Immature Gran % (Auto) % Neut % (Auto) % Lymph % (Auto) % [place] % (Auto) % Eos % (Auto) % Baso % (Auto) % Neut # (Auto) (1.4-6.5) K/uL Lymph # (Auto) (1.2-3.4) K/uL [place] # (Auto) (0.11-0.59) K/uL Eos # (Auto) (0-0.5) K/uL Baso # (Auto) (0-0.2) K/uL Immature Gran # (Auto) (0.00-0.02) K/uL ESR 31 H (0-20) mm/hr PT (9.0-12.0) Seconds INR (0.9-1.1) APTT (21.0-31.0) Seconds PTT Ratio Sodium (136-145) mmol/L Potassium (3.5-5.1) mmol/L Chloride (98-107) mmol/L Carbon Dioxide (21-32) mmol/L Anion Gap (3-11) BUN (7-18) mg/dl Creatinine (0.6-1.4) mg/dl Est Cr Clr Drug Dosing ml/min Est GFR ( Amer) ml/min Est GFR (Non-Af Amer) ml/min BUN/Creatinine Ratio (10-20) Glucose (70-99) mg/dl Calcium (8.5-10.1) mg/dl Magnesium (1.8-2.4) mg/dl Total Bilirubin (0.2-1) mg/dl AST (15-37) U/L ALT (12-78) U/L Alkaline Phosphatase (45-117) U/L Troponin I (0-0.045) ng/ml C-Reactive Protein 7.98 H (0-0.29) mg/dl Total Protein (6.4-8.2) gm/dl Albumin (3.4-5.0) gm/dl Globulin (2.5-4.0) gm/dl Albumin/Globulin Ratio (0.9-2) Procalcitonin 0.10 (0-0.5) ng/ml COVID-19 Eval Order SARS-CoV-2 (PCR) (Negative) 12/10/20 12/10/20 Range/Units 13:05 13:05 WBC (4.8-10.8) K/uL RBC (4.7-6.1) M/uL Hgb (14.0-18.0) g/dL Hct (42-52) % MCV (80-100) fL MCH (25-34) pg MCHC (32-36) g/dL RDW Std Deviation (36.4-46.3) fL RDW Coeff of Demetrice (11.5-14.5) % Plt Count (130-400) K/uL MPV (7.4-10.4) fL Immature Gran % (Auto) % Neut % (Auto) % Lymph % (Auto) % [place] % (Auto) % Eos % (Auto) % Baso % (Auto) % Neut # (Auto) (1.4-6.5) K/uL Lymph # (Auto) (1.2-3.4) K/uL [place] # (Auto) (0.11-0.59) K/uL Eos # (Auto) (0-0.5) K/uL Baso # (Auto) (0-0.2) K/uL Immature Gran # (Auto) (0.00-0.02) K/uL ESR (0-20) mm/hr PT (9.0-12.0) Seconds INR (0.9-1.1) APTT (21.0-31.0) Seconds PTT Ratio Sodium (136-145) mmol/L Potassium (3.5-5.1) mmol/L Chloride (98-107) mmol/L Carbon Dioxide (21-32) mmol/L Anion Gap (3-11) BUN (7-18) mg/dl Creatinine (0.6-1.4) mg/dl Est Cr Clr Drug Dosing ml/min Est GFR ( Amer) ml/min Est GFR (Non-Af Amer) ml/min BUN/Creatinine Ratio (10-20) Glucose (70-99) mg/dl Calcium (8.5-10.1) mg/dl Magnesium (1.8-2.4) mg/dl Total Bilirubin (0.2-1) mg/dl AST (15-37) U/L ALT (12-78) U/L Alkaline Phosphatase (45-117) U/L Troponin I (0-0.045) ng/ml C-Reactive Protein (0-0.29) mg/dl Total Protein (6.4-8.2) gm/dl Albumin (3.4-5.0) gm/dl Globulin (2.5-4.0) gm/dl Albumin/Globulin Ratio (0.9-2) Procalcitonin (0-0.5) ng/ml COVID-19 Eval Order Covid19 at [facility] SARS-CoV-2 (PCR) POSITIVE A* (Negative) Imaging Data Radiologist's Impression: Chest X-Ray 12/10/20 12:25 XR chest 1V portable CLINICAL HISTORY: Shortness of breath COMPARISON STUDY: 12/02/2020 FINDINGS: The heart is borderline enlarged. There is slight progression in the multifocal bilateral pulmonary airspace opacities consistent with a multifocal pneumonia. There are no large pleural effusions. There is no pneumothorax. There is no overt failure.[ IMPRESSION: Slight progression in the multifocal bilateral pulmonary airspace opacities consistent with a multifocal pneumonia ACT 112: Negative or not required by law. Electronically signed by: Edward Webb M.D. 12/10/2020 12:54 PM Chest CTA 12/10/20 12:46 CT ANGIOGRAM OF THE CHEST CLINICAL HISTORY: Chest pain and shortness of breath. Possible pulmonary em bolism. COMPARISON STUDY: 11/27/2020 TECHNIQUE: Following the IV administration of 115 mL of Optiray, CT angiogram of the thorax was performed from the thoracic inlet to the lung bases utilizing the pulmonary embolus protocol. Images are reviewed in the axial, sagittal, and coronal planes. IV contrast was administered without complication. MIP imaging was performed. A dose lowering technique was utilized adhering to the principles of ALARA. CT DOSE: 501.68 mGycm FINDINGS: There are mildly enlarged mediastinal lymph nodes, likely reactive. There was no evidence of thoracic aortic dilatation. There are multiple bilateral pulmonary artery filling defects, indicative of acute bilateral pulmonary embolism. These were not present on the preceding study. There is no convincing evidence of significant right ventricular strain. No pleural effusions are visualized. There are progressive bilateral pulmonary airspace opacities consistent with a worsening multifocal pneumonia. There is a stable 13 mm right lower lobe subpleural bleb. There is scattered hepatic hypodensities, statistically representing cysts. IMPRESSION: 1. Interval development of bilateral multilobar pulmonary artery filling defects indicative of acute bilateral pulmonary embolism 2. Progressive multifocal pulmonary airspace opacities consistent with a progressive multifocal pneumonia 3. Mild adenopathy, likely reactive ACT 112: Negative or not required by law. Electronically signed by: Edward Webb M.D. 12/10/2020 2:47 PM ECG Data Attestation: I personally reviewed and interpreted this ECG as follows: Indication: + chest pain Rate (beats per minute): 77 Rhythm: + normal sinus ECG Intervals/blocks: + Normal QRS and + Normal QT-c ECG ST segments: + Normal ST segments ECG Findings: + LVH; no PACs and no PVCs Blood Pressure Blood Pressure Findings: Normal blood pressure Blood Pressure Disposition: did not require urgent referral MDM Narrative This patient was evaluated and appeared to be in no significant distress. Patient was resting comfortably on supplemental oxygen. IV access was obtained and laboratory work was drawn. An order for cardiac monitoring was placed and patient was noted to be in a sinus rhythm at 74 bpm. Chest x-ray was performed and is consistent with the patient's history of Covid pneumonia. CT imaging of the chest was performed to rule out pulmonary embolus and is significant for bilateral pulmonary emboli. Patient was on 3 L of nasal cannula oxygen prior to arrival and has been able to maintain his saturations on this dose. IV heparin drip was initiated and patient's case was discussed with the hospitalist service. Patient is are informed of the findings and agree with the plan for admission and further management. Impression & Plan Bilateral pulmonary embolism, History of 2019 novel coronavirus disease (COVID- 19) Discharge Plan Visit Data Chief Complaint: Shortness of Breath/Dyspnea Stated Complaint: SHORTNESS OF BREATH - REF BY DOCTOR ED Provider: Alyse Gao Discharge Problem: Bilateral pulmonary embolism, History of 2019 novel coronavirus disease (COVID- 19) Patient Disposition: Admitted As Inpatient Discharge Instructions Interventions: ED Discharge Assessment Last Done: 12/10/20 18:18
--- NOTE | 2020-12-10 17:29 | Pharmacy Report ---
Pharmacy Abx Dose Short Note - Date of Service December 10, 2020 - Assessment & Plan Assessment 75 year old M admitted with increased shortness of breath, started on vancomycin and zosyn. Previously admitted with COVID pneumonia last month. Plan Vancomycin * 2250 mg loading dose x 1 in ED * Will dose with 1250 mg iv q 12 hr to achieve an estimated trough ~15-20 mcg/ml (goal for pneumonia) * Plan to order level if continued >48 hrs * Estimated kinetics: t1/2~10 hrs, ke~0.69, CrCl ~79 Zosyn * 3.375 gm iv q 8 hr - appropriate for CrCl >30 Pharmacy will continue to follow and will adjust dose/frequency as necessary. Thank you.
[2020-12-10] MEDS ORDERED: ACETAMINOPHEN 325 MG TAB PO PRN (18:43)
[2020-12-10] MEDS ORDERED: MAGNESIUM HYDROXIDE SUSP 30 ML UDC PO PRN (18:43)
[2020-12-10] MEDS ORDERED: ALBUTEROL HFA 8 GM INHALER INH PRN (18:43)
[2020-12-10] MEDS ORDERED: BENZONATATE 100 MG CAPSULE PO PRN (18:43)
[2020-12-10] MEDS ORDERED: ALUMINUM/MAGNESIUM SUSP 30 ML UDC PO PRN (18:43)
[2020-12-10] MEDS ORDERED: ONDANSETRON INJ 2 MG/ML 2 ML VIAL IV PRN (18:43)
[2020-12-10] MEDS ORDERED: POLYETHYLENE (MIRALAX) 17 GM PACK PO PRN (18:43)
[2020-12-10] MEDS ORDERED: Heparin IV Adult Wt-Based Standard *NO* Bolus Protocol ONE (18:43)
[2020-12-10] MEDS ORDERED: dexAMETHasone 6 MG in SYRINGE 0 ML IV SCH (19:30)
[2020-12-10] MEDS: FERROUS SULFATE 325 MG TAB PO SCH (21:38)
[2020-12-10] MEDS: PIPERACILLIN/TAZOBACTAM 3.375 GM in DEXTROSE 5% 100 ML IV SCH (21:39)
[2020-12-10] MEDS: HEPARIN SODIUM/DEXTROSE 25,000 UNITS/500 ML BAG IV SCH (22:21)
[2020-12-10 23:39] LABS: Partial Thromboplastin Ratio 4.3
[2020-12-11] MEDS ORDERED: VANCOMYCIN HCL 1,250 MG in SODIUM CHLORIDE 0.9% 250 ML IV SCH (06:00)
[2020-12-11] MEDS: PIPERACILLIN/TAZOBACTAM 3.375 GM in DEXTROSE 5% 100 ML IV SCH (06:23)
[2020-12-11 07:32] LABS: Basophils # (auto) 0.01 K/uL (0-0.2); Basophils % (auto) 0.1 %; Hematocrit (blood only) 41.8 % (42-52); Hemoglobin 14.1 g/dL (14.0-18.0); Immature Granulocytes # (auto) 0.07 K/uL (0.00-0.02); Immature Granulocytes % (auto) 0.5 %; Lymphocytes # (auto) 0.68 K/uL (1.2-3.4); Lymphocytes % (auto) 4.7 %; Mean Corpuscular Hemoglobin 29.5 pg (25-34); Mean Corpuscular Hgb Conc 33.7 g/dL (32-36); Mean Corpuscular Volume 87.4 fL (80-100); Mean Platelet Volume 10.5 fL (7.4-10.4); Monocytes # (auto) 0.45 K/uL (0.11-0.59); Monocytes % (auto) 3.1 %; Neutrophils # (auto) 13.21 K/uL (1.4-6.5); Neutrophils % (auto) 91.6 %; Platelet Count 145 K/uL (130-400); RDW Coefficient of Variation 14.5 % (11.5-14.5); RDW Standard Deviation 45.8 fL (36.4-46.3); Red Blood Count 4.78 M/uL (4.7-6.1); White Blood Count 14.42 K/uL (4.8-10.8)
[2020-12-11 08:11] LABS: Albumin Level 2.1 gm/dl (3.4-5.0); Calcium 8.8 mg/dl (8.5-10.1); Creatinine Clr Calc Pharmacy 86.7 ml/min; Est GFR (African American) 97.2 ml/min; Est GFR (Non-African American) 83.8 ml/min; Magnesium 2.3 mg/dl (1.8-2.4); Potassium 4.7 mmol/L (3.5-5.1)
[2020-12-11 08:14] LABS: Albumin Globulin Ratio 0.5 (0.9-2); Bilirubin,Total 0.9 mg/dl (0.2-1); Globulin 3.9 gm/dl (2.5-4.0); Partial Thromboplastin Time 104.7 Seconds (21.0-31.0)
[2020-12-11] MEDS: amLODIPine BESYLATE 5 MG TAB PO SCH (08:37)
[2020-12-11] MEDS: FERROUS SULFATE 325 MG TAB PO SCH ×2 (08:37→21:09)
[2020-12-11] MEDS: METOPROLOL SUCC 25MG EXT REL TAB PO SCH (08:37)
[2020-12-11] MEDS: FINASTERIDE 5 MG TAB PO SCH (08:38)
[2020-12-11] MEDS: ATORVASTATIN 40 MG TAB PO SCH (08:38)
[2020-12-11] MEDS: TAMSULOSIN HCL 0.4 MG CAP PO SCH (08:38)
[2020-12-11] MEDS: CITALOPRAM 20 MG TAB PO SCH (08:38)
[2020-12-11] MEDS: ASPIRIN 81 MG ECTAB PO SCH (08:38)
[2020-12-11] MEDS: EZETIMIBE 10 MG TABLET PO SCH (08:38)
[2020-12-11] MEDS: PANTOprazole 40 MG TAB PO SCH (08:38)
[2020-12-11 08:52] LABS: Estimated Average Glucose 140 mg/dl; Hemoglobin A1C 6.5 % (4.5-5.6)
--- NOTE | 2020-12-11 13:30 | Pulmonary Consultation ---
Date of Consultation December 11, 2020 Assessment & Plan (1) Bilateral pulmonary embolism: 75-year-old male with recent COVID-19 illness presenting to the hospital with pulmonary emboli. Patient appears comfortable at rest today. Recommend transitioning from heparin drip to an oral anticoagulant. Given the burden of clot seen, I would recommend 6 months of treatment with anticoagulation. I do not see clinical evidence of bacterial infection at this time. I have discontinued antibiotics. Notably, his MRSA screen and procalcitonin were within normal limits. The multifocal infiltrates seen on CT chest are secondary to evolving changes from his COVID-19 illness and may also represent areas of pulmonary infarct. I suspect the pain that he is having is related to pulmonary infarction. Please maintain his oxygen saturations of 92 to 94% especially in the setting of an acute pulmonary embolism as hypoxia can lead to vasoconstriction of his pulmonary arteries which can lead to right heart strain. Thank you for the consultation. Please call with questions. (2) History of 2019 novel coronavirus disease (COVID-19): (3) Acute hypoxemic respiratory failure: History of Present Illness Reason for Consultation: Recent COVID-19 illness with acute pulmonary embolism Attending Physician: Sudarshan Wallace MD History of Present Illness 75-year-old male with a history of hypertension, coronary artery disease status post stenting and recent COVID-19 illness presenting to the hospital due to chest pain. He was just discharged from the hospital in December 03 due to COVID-19 illness and was treated with remdesivir and Decadron. He came to the hospital yesterday with chest pain and shortness of breath. The chest pain was right-sided and pleuritic in nature. He notes that he uses oxygen at home on exertion since being discharged from the hospital. He denies any recent fevers, chills or night sweats. He does complain of mild dry cough. His pain is improved today but still present. He is currently on a heparin drip. He was also started on IV vancomycin, Zosyn and Decadron. His procalcitonin level was within normal limits. He had a chest CTA completed 12/10/2020 which demonstrates persistent bilateral multifocal infiltrates that are a bit more dense since his last CTA on 11/27/2020. Multiple bilateral pulmonary emboli were noted. He denies any history of pulmonary disease prior to his COVID-19 illness. He denies any smoking history. He lives with his in a house. Allergies Allergy/AdvReac Type Severity Reaction Status Date / Time No Known Allergies Allergy U Verified 12/10/20 13:55 Home Medications Medication Instructions Recorded Confirmed Type atorvastatin 80 mg PO QAM 10/22/18 12/10/20 History citalopram 60 mg PO QAM 10/22/18 12/10/20 History ezetimibe 10 mg PO QAM 10/22/18 12/10/20 History finasteride 5 mg PO QAM 10/22/18 12/10/20 History metoprolol succinate 25 mg PO QAM 10/22/18 12/10/20 History omeprazole 40 mg PO QAM 10/22/18 12/10/20 History tamsulosin 0.4 mg PO QAM 10/22/18 12/10/20 History aspirin 81 mg PO QAM 11/21/18 12/10/20 History ferrous sulfate [Iron (ferrous 325 mg PO BID 11/21/18 12/10/20 History sulfate)] amlodipine [Norvasc] 2.5 mg PO QAM #30 tab 12/02/20 12/10/20 Rx benzonatate [Tessalon Perles] 100 mg PO TID PRN #20 cap 12/02/20 12/10/20 Rx Patient History Medical History Bladder stone BPH (benign prostatic hyperplasia) GERD (gastroesophageal reflux disease) Heart disease HTN (hypertension) Hyperlipidemia Myocardial infarction X2 - Stents placed after first SC Urinary tract infection Surgical History H/O heart artery stent History of cardiac cath X2 History of colonoscopy History of cystoscopy LASER LITHO 11/16/13 - MAC #3, ETT #8.0 cuffed, Grade 2 View History of herniorrhaphy Right inguinal History of nasal surgery Age 17 - for nasal fracture Family History Other Family history non-contributory Social History Smoking Status: Never smoker Cigarettes Per Day: 0; Second Hand Exposure: No; Do You Dip or Chew Tobacco: Yes; Tobacco Cessation Education Requested by Patient: No Hx Alcohol Use: No Hx Substance Use: No Preferred Language: Mongolian Communication Ability: Effective Hand Woven Carpet And Rug Mender Required: No Beliefs That Will Affect Care: None Current Living Situation: Spouse current occupation: mail delivery Other Information That Helps Us Care for You: No Feels Safe at Home: Yes Safety Concerns: Feels Safe At This Time Assistive Devices: None Review of Systems Review of Systems: All systems reviewed & are unremarkable except as noted in HPI & below Physical Exam Constitutional: WD/WN, vitals as above Eyes: PERRL, conjunctivae normal, anicteric sclerae Neck: normal visual inspection Respiratory: Mild inspiratory Velcro crackles noted bilaterally, predominantly in the lower lobes. Cardiovascular: RRR, no murmur, no edema Gastrointestinal (Abdomen): normal bowel sounds, soft, nontender, no hepatosplenomegaly Musculoskeletal: no cyanosis or clubbing, extremities motor strength 5/5 Skin: no rashes, warm and dry Neurologic: PERRL, EOMI, accommodation nl, no face palsy, no dysarthria Psychiatric: A+Ox3, euthymic affect Results & Data Results & Data ([facility]) Vital Signs (Past 12 Hours) Vital Signs Temp Pulse Pulse Resp BP Pulse Ox 12/11/20 12:00 97.7 F 85 20 132/72 90 12/11/20 08:33 97.7 F 64 18 131/75 92 12/11/20 08:10 64 12/11/20 03:28 97.3 F L 54 L 20 113/54 L 96 I reviewed the vital signs, labs and imaging. Personally reviewed the CT chest results as noted in the HPI. PG Care Time/CCT Total # of Minutes Spent Total Time Spent with Patient: Total time spent is greater than 50% in coordination of care (as documented) at patient's floor/unit and/or counseling patient: Coding Level of Care Code 49058 Initial Inpt Care Lvl 3 Diagnoses Bilateral pulmonary embolism I26.99 History of 2019 novel coronavirus disease (COVID-19) Z86.16 Acute hypoxemic respiratory failure J96.01
[2020-12-11] MEDS: HEPARIN SODIUM/DEXTROSE 25,000 UNITS/500 ML BAG IV SCH (14:14)
[2020-12-11 16:04] LABS: Partial Thromboplastin Ratio 1.7; Partial Thromboplastin Time 44.7 Seconds (21.0-31.0)
--- NOTE | 2020-12-11 17:12 | Hospitalist Progress Note ---
Date of Service December 11, 2020 Assessment & Plan (1) Acute hypoxemic respiratory failure: (2) Hypoxia: (3) SOB (shortness of breath): (4) Pneumonia: (5) COVID-19: (6) Pulmonary embolism: (7) HTN (hypertension): (8) Heart disease: (9) H/O heart artery stent: -- remains n 3 L via oxymask -- Technologies Division Chair consulted recommend to D/C antibiotics transition from heparin drip to Eliquis tonight -- has completed course of Remdesivir and Decadron Admission and Anticipated Discharge Date Admission Date: December 10, 2020 Subjective ff up for Bilateral PE, hypoxia etc seen resting in bed, comfortable in good spirits on 3 L oxymask has intermittent r sided chest pain no active dyspnea no headache, dizziness, palpitations, abdominal pain, nausea/vomiting, bleeding no other symptoms Review of Systems Review of Systems: All systems reviewed & are unremarkable except as noted in Subjective Physical Exam Physical Exam: General- oriented x 3, not in distress, speaks in sentences with no effort or accessory muscle use Eyes- anicteric Neck- no JVD Lungs- mild rhonchi on the right Heart- normal rate, regular rhythm; no murmurs Abdomen- normal bowel sounds, nondistended, soft, nontender Extremities- no pretibial edema, no calf tenderness Neuro- alert, oriented x 3; no gross focal neurologic deficits Skin- warm & dry Results & Data Results & Data ([facility]) Vital Signs (Past 12 Hours) Vital Signs Temp Pulse Pulse Resp BP Pulse Ox 12/11/20 15:40 36.6 C 75 20 125/65 96 12/11/20 12:00 36.5 C 85 20 132/72 90 12/11/20 08:33 36.5 C 64 18 131/75 92 12/11/20 08:10 64 Laboratory Results Laboratory Results - last 24 hr 12/10/20 12/10/20 12/10/20 12:11 12:11 18:16 WBC RBC Hgb Hct MCV MCH MCHC RDW Std Deviation RDW Coeff of Demetrice Plt Count MPV Immature Gran % (Auto) Neut % (Auto) Lymph % (Auto) Fisher % (Auto) Eos % (Auto) Baso % (Auto) Neut # (Auto) Lymph # (Auto) Fisher # (Auto) Eos # (Auto) Baso # (Auto) Immature Gran # (Auto) APTT PTT Ratio Sodium Potassium Chloride Carbon Dioxide Anion Gap BUN Creatinine Est Cr Clr Drug Dosing Est GFR ( Amer) Est GFR (Non-Af Amer) BUN/Creatinine Ratio Glucose Estimat Average Glucose Hemoglobin A1c Calcium Magnesium Total Bilirubin AST ALT Alkaline Phosphatase Troponin I < 0.015 C-Reactive Protein 7.98 H Total Protein Albumin Globulin Albumin/Globulin Ratio Procalcitonin 0.10 Nasal Screen MRSA (PCR) 12/10/20 12/11/20 12/11/20 22:44 00:49 06:57 WBC 14.42 H RBC 4.78 Hgb 14.1 Hct 41.8 L MCV 87.4 MCH 29.5 MCHC 33.7 RDW Std Deviation 45.8 RDW Coeff of Demetrice 14.5 Plt Count 145 MPV 10.5 H Immature Gran % (Auto) 0.5 Neut % (Auto) 91.6 Lymph % (Auto) 4.7 Fisher % (Auto) 3.1 Eos % (Auto) 0.0 Baso % (Auto) 0.1 Neut # (Auto) 13.21 H Lymph # (Auto) 0.68 L Fisher # (Auto) 0.45 Eos # (Auto) 0.00 Baso # (Auto) 0.01 Immature Gran # (Auto) 0.07 H APTT 112.0 H* PTT Ratio 4.3 Sodium Potassium Chloride Carbon Dioxide Anion Gap BUN Creatinine Est Cr Clr Drug Dosing Est GFR ( Amer) Est GFR (Non-Af Amer) BUN/Creatinine Ratio Glucose Estimat Average Glucose Hemoglobin A1c Calcium Magnesium Total Bilirubin AST ALT Alkaline Phosphatase Troponin I < 0.015 C-Reactive Protein Total Protein Albumin Globulin Albumin/Globulin Ratio Procalcitonin Nasal Screen MRSA (PCR) 12/11/20 12/11/20 12/11/20 06:57 06:57 06:57 WBC RBC Hgb Hct MCV MCH MCHC RDW Std Deviation RDW Coeff of Demetrice Plt Count MPV Immature Gran % (Auto) Neut % (Auto) Lymph % (Auto) Fisher % (Auto) Eos % (Auto) Baso % (Auto) Neut # (Auto) Lymph # (Auto) Fisher # (Auto) Eos # (Auto) Baso # (Auto) Immature Gran # (Auto) APTT 104.7 H* PTT Ratio 4.0 Sodium 137 Potassium 4.7 Chloride 106 Carbon Dioxide 27 Anion Gap 4.0 BUN 20 H Creatinine 0.90 Est Cr Clr Drug Dosing 86.7 Est GFR ( Amer) 97.2 Est GFR (Non-Af Amer) 83.8 BUN/Creatinine Ratio 22.0 H Glucose 160 H Estimat Average Glucose 140 Hemoglobin A1c 6.5 H Calcium 8.8 Magnesium 2.3 Total Bilirubin 0.9 AST 18 ALT 37 Alkaline Phosphatase 73 Troponin I C-Reactive Protein Total Protein 6.0 L Albumin 2.1 L Globulin 3.9 Albumin/Globulin Ratio 0.5 L Procalcitonin Nasal Screen MRSA (PCR) 12/11/20 12/11/20 10:48 15:09 WBC RBC Hgb Hct MCV MCH MCHC RDW Std Deviation RDW Coeff of Demetrice Plt Count MPV Immature Gran % (Auto) Neut % (Auto) Lymph % (Auto) Fisher % (Auto) Eos % (Auto) Baso % (Auto) Neut # (Auto) Lymph # (Auto) Fisher # (Auto) Eos # (Auto) Baso # (Auto) Immature Gran # (Auto) APTT 44.7 H PTT Ratio 1.7 Sodium Potassium Chloride Carbon Dioxide Anion Gap BUN Creatinine Est Cr Clr Drug Dosing Est GFR ( Amer) Est GFR (Non-Af Amer) BUN/Creatinine Ratio Glucose Estimat Average Glucose Hemoglobin A1c Calcium Magnesium Total Bilirubin AST ALT Alkaline Phosphatase Troponin I C-Reactive Protein Total Protein Albumin Globulin Albumin/Globulin Ratio Procalcitonin Nasal Screen MRSA (PCR) Negative (1) Pneumonia Laterality: bilateral Lung location: unspecified part of lung Pneumonia type: due to unspecified organism Qualified Code(s): J18.9 - Pneumonia, u nspecified organism
[2020-12-11] MEDS: APIXABAN 5 MG TABLET PO SCH (21:09)
[2020-12-12] MEDS: HEPARIN SODIUM/DEXTROSE 25,000 UNITS/500 ML BAG IV SCH (07:10)
[2020-12-12 08:24] LABS: Creatinine Clr Calc Pharmacy 89.6 ml/min; Est GFR (African American) 98.5 ml/min
--- NOTE | 2020-12-12 08:25 | Discharge Summary ---
Date of Service December 12, 2020 Admission HPI Per Admitting Provider 75-year-old male with a past medical history of COVID-19 pneumonia, respiratory failure with hypoxia, hypertension, coronary disease, history of cardiac stent, bladder diverticulum, bladder stone, urinary tract infection who was admitted on November 27 and discharged on December 03 after being treated for COVID-19 pneumonia with remdesivir and Decadron. Patient had a positive Covid test 9 days prior to his previous admission but developed symptoms 3 days prior to his previous admission. Today he comes back with shortness of breath and right-sided chest pain requiring 3 L of oxygen to keep him oxygenated in the emergency room. He was found to have bilateral PEs and heparin drip was started. He was also found to have a leukocytosis and pneumonia on CT scans. He will be admitted as an inpatient placed on IV vancomycin and Zosyn and we will continue his Decadron. We will place him in isolation for now. We will monitor daily labs. Admission Exam Per Admitting Provider ROS-No Headache, No Visual Changes, No Nausea, No Vomiting, No Fever, No Chills, No Neck Pain or Stiffness, R Sided Chest Pain, + Pleuritic CP, No Palpitations, + SOB, + BRAGA, + Cough, No Sputum, No Wheezing, No Abdominal Pain, No Diarrhea, No Hematemesis, No Hemoptysis, No Unexpected Weight Loss, No Flank pain, No Melena, No Hematochezia, No Frequency, No Urgency, No Burning, No Hematuria, No Rashes, No Diaphoresis. Appetite is Normal Physical Exam Gen-AAO x 3, NAD, Afebrile, On O2 Mask Head-NCAT, EOMI, PERRLA, Anicteric Sclera, No Posterior Pharyngeal Erythema Neck-Supple, No JVD, No Thyromegaly, No Masses, No LAD, No Bruits Lungs-Clear to Auscultation Bilaterally, No Rales, No Rhonchi, No Wheezing, No Crepitus Chest-No S4, +S1, +S2, No S3, No Murmurs, No Rubs, No Gallops, No Ectopy Abdomen-Soft, Bowel Sounds Present, Non Tender, Non Distended, No Hepatomegaly, No Splenomegaly, No Palpable Masses, No Rebound, No Rigidity, No Guarding Musculoskeletal-Full Range of Motion Bilaterally, No CVAT Extremities-No Cyanosis, No Clubbing, No Edema Nuero-Cranial Nerves II-XII grossly intact, Motor WNL, DTRs WNL, Strength WNL, Non Focal Psych-Normal Mood Principal Diagnosis (1) Acute hypoxemic respiratory failure: (2) Hypoxia: (3) SOB (shortness of breath): (4) Pneumonia: (5) COVID-19: (6) Pulmonary embolism: (7) HTN (hypertension): (8) Heart disease: (9) H/O heart artery stent: Discharge Exam ROS-No Headache, No Visual Changes, No Nausea, No Vomiting, No Fever, No Chills, No Neck Pain or Stiffness, Minimal R Sided Chest Pain, No Palpitations, No SOB, No BRAGA, No Cough, No Sputum, No Wheezing, No Abdominal Pain, No Diarrhea, No Hematemesis, No Hemoptysis, No Unexpected Weight Loss, No Flank pain, No Melena, No Hematochezia, No Frequency, No Urgency, No Burning, No Hematuria, No Rashes, No Diaphoresis. Appetite is Normal Physical Exam Gen-AAO x 3, NAD, Afebrile, on O2 at home Head-NCAT, EOMI, PERRLA, Anicteric Sclera, No Posterior Pharyngeal Erythema Neck-Supple, No JVD, No Thyromegaly, No Masses, No LAD, No Bruits Lungs-Clear to Auscultation Bilaterally, No Rales, No Rhonchi, No Wheezing, No Crepitus Chest-No S4, +S1, +S2, No S3, No Murmurs, No Rubs, No Gallops, No Ectopy Abdomen-Soft, Bowel Sounds Present, Non Tender, Non Distended, No Hepatomegaly, No Splenomegaly, No Palpable Masses, No Rebound, No Rigidity, No Guarding Musculoskeletal-Full Range of Motion Bilaterally, No CVAT Extremities-No Cyanosis, No Clubbing, No Edema Nuero-Cranial Nerves II-XII grossly intact, Motor WNL, DTRs WNL, Strength WNL, Non Focal Psych-Normal Mood Discharge Data Allergies Allergy/AdvReac Type Severity Reaction Status Date / Time No Known Allergies Allergy U Verified 12/10/20 13:55 Consultations 12/10/20 16:29 ED Decision to Admit Stat 12/11/20 07:49 Consult Pulmonology Routine Ordered Studies 12/10/20 12:46 CT angio chest PE protocol Stat Diabetes Follow up Diabetes Follow-up Needed for Newly Diagnosed Diabetes Hospital Course (1) Acute hypoxemic respiratory failure: (2) Hypoxia: (3) SOB (shortness of breath): (4) Pneumonia: (5) COVID-19: (6) Pulmonary embolism: (7) HTN (hypertension): (8) Heart disease: (9) H/O heart artery stent: -- remains n 3 L via oxymask, on O2 at home -- Dumper Mold Cleaner consulted, D/C antibiotics, continue Eliquis -- has completed course of Remdesivir and Decadro -- DC home today on Eliquis and F/U c Dr Rachel about blood sugars Total Time Total Time Spent Total Time Spent (In Minutes): 45 mins Total Time Includes: Examination of the Patient, Discharge Planning, Medication Reconciliation and Communication With Other Providers Discharge Plan Discharge Items Patient Disposition: Home - Self-Care Reason For Visit: ACUTE PE; MULTIFOCAL PNA Discharge Diagnosis: (1) Acute hypoxemic respiratory failure: (2) Hypoxia: (3) SOB (shortness of breath): (4) Pneumonia: (5) COVID-19: (6) Pulmonary embolism: (7) HTN (hypertension): (8) Heart disease: (9) H/O heart artery stent: Condition on Discharge: Good Health Concerns: worsening SOB Activity: Per Instructions section Activity Comment: Relax at home for a few days then increase activity as tolerated Lifting: Gradually increase as tolerated Bathing: No limitations Sexual Activity: When tolerated Exercise/Sports: Rest today Driving/Machine Use: No limitations Weightbearing: Full weightbearing Non-emergency contact: Primary Care Provider and Dumper Mold Cleaner Call non-emergency contact if: you have any medication questions Follow-up/Referrals: Gary Valdez MD [Physician] - (2-3 weeks) Susan Larios DO [Primary Care Provider] - Diet: Heart Healthy Addtl Attending Provider Instructions: If you don't have a pulse oximeter, get one, keep your sats 92-94% Follow up with Dr Rachel about your blood sugars Pending Studies at Discharge: No Stand-Alone Forms: My [employer], Smoking Cessation Medications and DC Order Prescriptions: New albuterol sulfate [Ventolin HFA] 90 mcg/actuation Hfa Aerosol Inhaler 2 puff inhalation Q4 PRN (Reason: bronchospasm/Shortness of breath/Wheezing) Qty: 2 RF: 0 Eliquis 5 mg Tablet 10 mg PO BID Qty: 90 RF: 0 Continued aspirin 81 mg Tablet,Delayed Release (Dr/Ec) 81 mg PO QAM RF: 0 ferrous sulfate [Iron (ferrous sulfate)] 325 mg (65 mg iron) Tablet 325 mg PO BID RF: 0 atorvastatin 80 mg tablet 80 mg PO QAM RF: 0 citalopram 40 mg tablet 60 mg PO QAM RF: 0 omeprazole 40 mg capsule,delayed release(DR/EC) 40 mg PO QAM RF: 0 tamsulosin 0.4 mg Capsule 0.4 mg PO QAM RF: 0 metoprolol succinate 25 mg tablet extended release 24 hr 25 mg PO QAM RF: 0 finasteride 5 mg tablet 5 mg PO QAM RF: 0 ezetimibe 10 mg Tablet 10 mg PO QAM RF: 0 amlodipine [Norvasc] 5 mg Tablet 2.5 mg PO QAM Qty: 30 RF: 2 benzonatate [Tessalon Perles] 100 mg Capsule 100 mg PO TID PRN (Reason: cough) Qty: 20 RF: 0 Discharge Orders: Discharge Order (Routine); Ordered 12/12/20 Ordered By: Dawson Keane/Other Patient Handouts: High Blood Sugar (Hyperglycemia), 5 Steps for Eating Healthier, A1C Admission Data Admit Date/Time: 12/10/20 16:14 Attending Provider: Dawson Richards Admit Provider: Dawson Richards Primary Care Provider: Susan Larios Other Providers: Dawson Richards ; Gary Valdez
[2020-12-12] MEDS: FERROUS SULFATE 325 MG TAB PO SCH (09:53)
[2020-12-12] MEDS: amLODIPine BESYLATE 5 MG TAB PO SCH (09:54)
[2020-12-12] MEDS: EZETIMIBE 10 MG TABLET PO SCH (09:54)
[2020-12-12] MEDS: FINASTERIDE 5 MG TAB PO SCH (09:54)
[2020-12-12] MEDS: PANTOprazole 40 MG TAB PO SCH (09:54)
[2020-12-12] MEDS: ATORVASTATIN 40 MG TAB PO SCH (09:54)
[2020-12-12] MEDS: APIXABAN 5 MG TABLET PO SCH (09:54)
[2020-12-12] MEDS: ASPIRIN 81 MG ECTAB PO SCH (09:54)
[2020-12-12] MEDS: TAMSULOSIN HCL 0.4 MG CAP PO SCH (09:55)
[2020-12-12] MEDS: METOPROLOL SUCC 25MG EXT REL TAB PO SCH (09:55)
[2020-12-12] MEDS: CITALOPRAM 20 MG TAB PO SCH (09:55)
[2020-12-18] MEDS ORDERED: APIXABAN 5 MG TABLET PO SCH (21:00)
== END 2020-12-12 12:05 | disposition home or self-care (01) | DRG 177 ==
LOC: ED 11:52 → SUATTDRO 16:14 → 2S 16:14
DX: I10 Essential (primary) hypertension; Z79.82 Long term (current) use of aspirin; J96.01 Acute respiratory failure with hypoxia; K21.9 Gastro-esophageal reflux disease without esophagitis; I25.2 Old myocardial infarction; J12.82 Pneumonia due to coronavirus disease 2019; I26.99 Other pulmonary embolism without acute cor pulmonale; U07.1 COVID-19

== ENCOUNTER 2023-01-19 06:16 | Observation (INO) ==
--- NOTE | 2022-10-23 11:22 | PAT Medication Instructions ---
Medication Instructions Date of Service October 23, 2022 Home Medications Medication Instructions Recorded cefdinir 300 mg capsule 300 mg PO BID 10 days #20 caps 10/08/22 cholecalciferol (vitamin D3) 1,250 50,000 unit PO WEEKLY 6 weeks #6 10/08/22 mcg (50,000 unit) capsule caps Medication List: atorvastatin 80 mg tablet 80 mg PO QAM citalopram 40 mg tablet 60 mg PO QAM ezetimibe 10 mg tablet 10 mg PO QAM finasteride 5 mg tablet 5 mg PO QAM metoprolol succinate 25 mg tablet,extended release 24 hr 25 mg PO QAM omeprazole 40 mg capsule,delayed release 40 mg PO QAM tamsulosin 0.4 mg capsule 0.4 mg PO QAM aspirin 81 mg tablet,delayed release 81 mg PO QAM iron,carbonyl 65 mg-vitamin C 125 mg tablet,delayed release (Vitron-C) 1 tab PO QAM cholecalciferol (vitamin D3) 1,250 mcg (50,000 unit) capsule 50,000 unit PO WEEKLY 6 weeks ASK your prescriber and surgeon aspirin 81 mg tablet,delayed release 81 mg PO QAM DO NOT take the morning of surgery cholecalciferol (vitamin D3) 1,250 mcg (50,000 unit) capsule 50,000 unit PO WEEKLY 6 weeks iron,carbonyl 65 mg-vitamin C 125 mg tablet,delayed release (Vitron-C) 1 tab PO QAM Take morning of surgery With a small sip of water, OTHERWISE NOTHING TO EAT OR DRINK AFTER MIDNIGHT: atorvastatin 80 mg tablet 80 mg PO QAM citalopram 40 mg tablet 60 mg PO QAM ezetimibe 10 mg tablet 10 mg PO QAM finasteride 5 mg tablet 5 mg PO QAM metoprolol succinate 25 mg tablet,extended release 24 hr 25 mg PO QAM omeprazole 40 mg capsule,delayed release 40 mg PO QAM tamsulosin 0.4 mg capsule 0.4 mg PO QAM Other Notes If you have any questions please call us at [phone] or [phone] or [phone] or [phone]
--- NOTE | 2022-10-28 09:33 | Anesthesiology Consultation ---
Date of Service October 28, 2022 Assessment & Plan (1) Encounter for pre-operative examination: Plan - check BSG am DOS. - cardiology 10/13/22 [facility]: "...feeling relatively well from a cardiac standpoint...breathing has been impaired since having COVID in the bilateral PEs. No new or worsening shortness of breath...Stable mild intermittent cough productive of phlegm...status post NSTEMI in September 2012 status post PCI of the RCA and right PDA (JEAN). History of December 2017 apical wall myocardial infarction managed medically. Formal catheterization report with noncritical coronary artery disease, no evidence of acute myocardial infarction, normal LV systolic function. Subsequent review of his coronary angiography after initial presentation notable for a distal LAD occlusion...Bicuspid aortic valve with mild aortic regurgitation and a mildly enlarged aortic root...Continue current cardiac medications as prescribed...follow-up in 6 months time or as needed..." - Case discussed in detail with Dr. Dong who advised patient is acceptable to proceed at current status and does not need further evaluation from his standpoint. Chart Review Chart Review: Acceptable Risk for Surgery and Patient seen in Pre Admission Testing Teaching & Discussion Pre-Anesthesia Teaching/Discussion Notes: Instructed NPO after midnight before surgery, except medications with 15 cc of water. Medication instructions provided according to the PAT guidelines. History Surgery Operation Date: 11/10/22 08:55 Proposed Procedures p TURP (Transurethral Resection of the Prostate) - Rios Conteh MD s Cystolithopaxy - Rios Conteh MD Height/Weight Height: 5 ft 10 in Weight: 102.965 kg Allergies Allergy/AdvReac Type Severity Reaction Status Date / Time ERIBERTO Inhibitors AdvReac Severe orthostatic Verified 10/28/22 08:50 hypotension/contraindicated per [facility] cardio ARB-Angiotensin Receptor AdvReac Severe orthostatic Verified 10/28/22 08:50 Antagonist hypotension/contraindicated per [facility] cardio Medications Home Medications Medication Instructions Recorded Confirmed Last Taken atorvastatin 80 mg tablet 80 mg PO QAM 10/22/18 10/22/22 12/09/20 citalopram 40 mg tablet 60 mg PO QAM 10/22/18 10/22/22 12/09/20 ezetimibe 10 mg tablet 10 mg PO QAM 10/22/18 10/22/22 12/09/20 finasteride 5 mg tablet 5 mg PO QAM 10/22/18 10/22/22 12/09/20 metoprolol succinate 25 mg 25 mg PO QAM 10/22/18 10/22/22 12/09/20 tablet,extended release 24 hr omeprazole 40 mg capsule,delayed 40 mg PO QAM 10/22/18 10/22/22 12/09/20 release tamsulosin 0.4 mg capsule 0.4 mg PO QAM 10/22/18 10/22/22 12/09/20 aspirin 81 mg tablet,delayed 81 mg PO QAM 11/21/18 10/22/22 12/09/20 release iron,carbonyl 65 mg-vitamin C 125 1 tab PO QAM 10/06/22 10/22/22 Unknown mg tablet,delayed release (Vitron-C) cefdinir 300 mg capsule 300 mg PO BID 10 days #20 caps 10/08/22 10/22/22 Unknown cholecalciferol (vitamin D3) 1,250 50,000 unit PO WEEKLY 6 weeks #6 10/08/22 10/22/22 Unknown mcg (50,000 unit) capsule caps Past Medical History Medical History (Updated 10/28/22 @ 13:21 by Kmi Henderson, ISABEL) Anemia h/o iron infusions, last several yrs ago Bicuspid aortic valve with aortic regurgitation Bilateral pulmonary embolism Bladder stone BPH (benign prostatic hyperplasia) CAD (coronary artery disease) s/p NSTEMI 2012, PCI RCA and R PDA, [place] 2017 noncritical coronary artery disease, distal LAD occlusion CKD (chronic kidney disease) Diabetes pre-op A1c 6.5% Dyspnea on exertion ongoing since second bout with COVID19, denies change or worsening GERD (gastroesophageal reflux disease) controlled, stable per pt History of COVID-19 EITHER IN 2019 OR 2020, HOSPITALIZED AT [facility] BOTH TIMES; PNEUMONIA>RESOLVED- WAS SENT HOME ON OXYGEN. HTN (hypertension) controlled, stable per pt Hyperlipidemia Hypertriglyceridemia Myocardial infarction X2 - Stents placed after first [place] Patient denies h/o stroke, seizures, heart failure, DM or blood transfusion. Exercise / Class Metabolic Activity III < 4 Walking/Shop/Light housework (SOB with usual activities, denies change or worsening; denies chest discomfort) Past Family History Family History Father Diabetes Gallbladder disease Heart disease Hypertension Sister Hypertension Breast cancer Father Myocardial infarction Other Family history non-contributory Denies family history of Ovarian cancer Prostate cancer Colorectal cancer Past Surgical History Surgical History H/O heart artery stent X2 STENTS, [facility]; F/U [facility] History of cardiac cath X2, MOST RECENT 2018, [facility]; CURRENTLY F/U [facility] History of colonoscopy History of cystoscopy [facility] 11/16/13 - MAC #3, ETT #8.0 cuffed, Grade 2 View History of herniorrhaphy Right inguinal History of nasal surgery Age 17 - for nasal fracture Past Anesthesia History No Hx of Anesthesia Complications and No Family Hx of Anesthesia Complications History of PONV No Hx of PONV and No Hx of Motion Sickness Social History Smoking Status: Never smoker tobacco type: smokeless tobacco Smoking cigarettes per day: 0 Do You Dip or Chew Tobacco: Yes (1 CAN/1.5-2 DAYS; ADVISED) Hx Alcohol Use: Yes Alcohol type: beer alcohol intake frequency: holidays/special occasions only Hx Substance Use: No substance use type: does not use Review of Systems Snoring, denies witnessed apneas. Patient denies chest pain, fever, chills, cough, wheezing, or palpitations. Physical Exam Vital Signs Vitals BP 144/75 P 65 TEMP 97.9 SP02 96% on RA RESP 17 Physical Full cervical extension range of motion without pain TMD 3.5 finger breadths Mallampati Score 2 Dentition: edentulous, full upper and lower dentures Lungs: normal respiratory effort. Clear throughout to auscultation, no adventitious breath sounds Cardiac: regular rate and rhythm, no murmurs noted Carotid arteries: negative bruit bilat Lab Results Anesthesia Preop Results Results Anesthesia Widget: WBC 5.74 K/ul (4.8-10.8) 10/28/22 Hgb 14.4 g/dl (14.0-18.0) 10/28/22 Hct 43.8 % (42.0-52.0) 10/28/22 Plt 194 K/uL (130-400) 10/28/22 Na 138 mmol/L (136-145) 10/28/22 K 4.7 mmol/L (3.5-5.1) 10/28/22 Cl 105 mmol/L (98-107) 10/28/22 CO2 29 mmol/L (21-32) 10/28/22 BUN 11 mg/dl (6-23) 10/28/22 Creat 1.01 mg/dl (0.6-1.4) 10/28/22 Glucose Level 110 mg/dl (70-99(Fasting)) H 10/28/22 TSH 4.685 uIu/ml (0.300-4.500) H 10/06/22 Free T4 0.72 ng/dl (0.61-1.60) 10/06/22 HA1c 6.5 % (4.5-5.6) H 10/06/22 Urine Color Dark Yellow 10/06/22 Urine Appearance Turbid (Clear) A 10/06/22 Urine pH 5.5 (4.5-7.5) 10/06/22 Urine Specific [place] 1.021 (1.000-1.030) 10/06/22 Urine Protein 1+ (Negative) H 10/06/22 Urine Glucose (UA) 2+ (Negative) H 10/06/22 Urine Ketones Negative (Negative) 10/06/22 Urine Blood 1+ (Negative) H 10/06/22 Urine Nitrite Negative (Negative) 10/06/22 Urine Bilirubin Negative (Negative) 10/06/22 Urine Urobilinogen Negative (Negative) 10/06/22 Urine Leukocyte Esterase 3+ (Negative) H 10/06/22 Urine WBC (Auto) >30 /hpf (0-5) H 10/06/22 Urine RBC (Auto) 0-4 /hpf (0-4) 10/06/22 Urine Hyaline Casts (Auto) 0 /lpf (0-5) 10/06/22 Urine Epithelial Cells (Auto) 0-5 /lpf (0-5) 10/06/22 Urine Bacteria (Auto) 4+ (Negative) H 10/06/22 Urine Yeast Not Reportable 10/06/22 Testing Electrocardiogram Date: 10/13/22 NSR, rate 71 bpm LVH Echocardiogram Date: 09/03/22 EF 60-64% Mild cLVH Normal LV wall motion Congenitally bicuspid aortic valve Mildly calcified aortic valve Mild aortic regurgitation Aortic root mildly enlarged Grade I diastolic dysfunction Stress Test Date: 01/18/18 Exercise METS 7 MPHR 93% Submaximal exercise stress test revealing no EKG evidence of inducible ischemia Small sized infarction with superimposed ischemia of the apical inferior wall. The area is consistent with ischemia and viability, however it is limited to a single myocardial segment EF 58% Cardiac Catheterization Date: 12/31/17 Left main: normal LAD: no significant stenosis LCx: mid 50% stenosis RCA: no significant disease Noncritical CAD Other Testing CT abdomen pelvis 10/21/22 Lung bases: The heart is mildly enlarged and without pericardial effusion. The coronary arteries are densely calcified. A small hiatal hernia is noted. Dependent airspace opacities are present at both lung bases, left greater than right. No pleural effusion is seen. There are scattered calcified granulomas. Liver: The unenhanced liver is normal in size, contour, and attenuation. There is no intrahepatic biliary ductal dilatation. Scattered hepatic cysts measure up to 2.1 cm. Kidneys: The unenhanced kidneys demonstrate cortical atrophy and are without hydronephrosis. There are no renal calculi identified. Bilateral renal cysts measuring up to 8 cm. Abdominal vasculature: The abdominal aorta is normal in course and caliber noting moderate atherosclerotic calcification. Bowel: There is mild colonic diverticulosis without CT evidence of acute diverticulitis. No bowel obstruction is seen. The appendix is well-visualized and normal. Peritoneum: There is no intraperitoneal free air or abdominal ascites. Pelvic viscera: The prostate gland is enlarged and heterogeneous nothing median lobe hypertrophy. The bladder is distended, and the wall is thickened/trabeculated indicating chronic outlet obstruction. There are numerous bladder diverticula which measure up to 3.2 cm. There are several bladder calculi which measure up to 6 mm. Inguinal herniorrhaphy change is noted on the right. Skeletal structures: The skeletal structures are osteopenic. There is mild to moderate lumbosacral spondylosis. No lytic or blastic lesions are seen. IMPRESSION: 1. Prostatomegaly with evidence of chronic bladder outlet obstruction as detailed above. 2. Bladder calculi are noted. 3. The kidneys demonstrate mild cortical atrophy and are without hydronephrosis. 4. Mild colonic diverticulosis without CT evidence of acute diverticulitis. 5. Dependent airspace opacities likely represent scarring/atelectasis. Correlate clinically for evidence of a superimposed infectious/inflammatory pneumonitis. 6. Additional findings as above. COVID-19 Risk Screen Screening Information COVID-19 Screen Date: 10/28/22 Exposure 21 Days Family/Household +COVID Last 21 Days: No Exposure 10 Days Any COVID Exposure Last 10 Days: No Symptoms Last 10 Days Experienced COVID Sx Last 10 Days: No + COVID 0-90 Days COVID + in Last 0-90 Days: No
[~2023-01-19 06:16] MED LIST: CIPROFLOXACIN / D5W 400 MG/200 ML BAG IV SCH; LACTATED RINGER'S 1,000 ML IV SCH; LR 15ML/HR IV SCH
--- NOTE | 2023-01-19 07:31 | History & Physical Report ---
Date of Service January 19, 2023 Assessment & Plan (1) BPH w urinary obs/LUTS: (2) Bladder stone: Plan Bladder calculi and BPH - plan for TURP and lithopaxy - 23 hour obs stay History of Present Illness Primary Care Provider: Faina Carlin DO Presents for TURP and lithopaxy - previously scheduled, but had to be delayed because of pneumonia - now recovered - stable for surgery Allergies Allergy/AdvReac Type Severity Reaction Status Date / Time ERIBERTO Inhibitors AdvReac Severe orthostatic Verified 01/19/23 06:50 hypotension/contraindicated per [facility] cardio ARB-Angiotensin Receptor AdvReac Severe orthostatic Verified 01/19/23 06:50 Antagonist hypotension/contraindicated per [facility] cardio Home Medications Medication Instructions Recorded Confirmed Type atorvastatin 80 mg tablet 80 mg PO QAM 10/22/18 01/19/23 History citalopram 40 mg tablet 60 mg PO QAM 10/22/18 01/19/23 History ezetimibe 10 mg tablet 10 mg PO QAM 10/22/18 01/19/23 History finasteride 5 mg tablet 5 mg PO QAM 10/22/18 01/19/23 History metoprolol succinate 25 mg 25 mg PO QAM 10/22/18 01/19/23 History tablet,extended release 24 hr omeprazole 40 mg capsule,delayed 40 mg PO QAM 10/22/18 01/19/23 History release tamsulosin 0.4 mg capsule 0.4 mg PO QAM 10/22/18 01/19/23 History aspirin 81 mg tablet,delayed 81 mg PO QAM 11/21/18 01/19/23 History release iron,carbonyl 65 mg-vitamin C 125 1 tab PO QAM 10/06/22 01/19/23 History mg tablet,delayed release (Vitron-C) benzonatate 200 mg capsule 200 mg PO TID PRN cough #21 caps 11/16/22 01/19/23 Rx inhalational spacing device #1 ea 12/22/22 12/29/22 Rx (Aerochamber Plus Z Stat spacer) cholecalciferol (vitamin D3) 50 50 mcg PO DAILY #90 caps 12/29/22 01/19/23 Rx mcg (2,000 unit) capsule triamcinolone acetonide 0.5 % 1 applic topical BID PRN skin 12/29/22 01/19/23 Rx topical cream irritation #60 grams Past Med/Surg History Medical History Anemia h/o iron infusions, last several yrs ago Arthritis, lumbar spine Bicuspid aortic valve with aortic regurgitation Bilateral pulmonary embolism Bladder stone CAD (coronary artery disease) s/p NSTEMI 2012, PCI RCA and R PDA, [place] 2018 noncritical coronary artery disease, distal LAD occlusion CKD (chronic kidney disease) Diabetes pre-op A1c 6.5% GERD (gastroesophageal reflux disease) controlled, stable per pt History of COVID-19 EITHER IN 2019 OR 2020, HOSPITALIZED AT [facility] BOTH TIMES; PNEUMONIA>RESOLVED- WAS SENT HOME ON OXYGEN. History of recent pneumonia 11/2022- resolving, continues have slight productive cough and mild SOB lingering- CXR 01/13 HTN (hypertension) controlled, stable per pt Hyperlipidemia Hypertriglyceridemia Myocardial infarction X2 - Stents placed after first [place] Vitamin D deficiency Surgical History H/O heart artery stent X2 STENTS, [facility]; F/U [facility] History of cardiac cath X2, MOST RECENT 2017, [facility]; CURRENTLY F/U [facility] History of colonoscopy History of cystoscopy [facility] 11/16/13 - MAC #3, ETT #8.0 cuffed, Grade 2 View History of herniorrhaphy Right inguinal History of nasal surgery Age 17 - for nasal fracture Family History Father Diabetes Gallbladder disease Heart disease Hypertension Sister Hypertension Breast cancer Father Myocardial infarction Other Family history non-contributory Denies family history of Ovarian cancer Prostate cancer Colorectal cancer Social History Smoking Status: Never smoker Tobacco Type: Smokeless Tobacco (Dip or Chew) Second Hand Exposure: No; Do You Dip or Chew Tobacco: Yes (1 CAN/1.5-2 DAYS; ADVISED); Tobacco Cessation Education Requested by Patient: No Hx Alcohol Use: Yes Alcohol type: beer Hx Substance Use: No Preferred Language: Vincentian Communication Ability: Effective Visual Impairment: Limited Hearing Ability: Use of Hearing Aid Auricular Detoxification Specialist Required: No Beliefs That Will Affect Care: None marital status: Current Living Situation: Spouse current occupational status: retired current occupation: mail delivery How many Children do You have: 4 Other Information That Helps Us Care for You: No Feels Safe at Home: Yes Safety Concerns: Feels Safe At This Time Childhood Exposure to Second-Hand Smoke: No Diet: regular Diet Comment: Regular caffeine: Yes (coffee) during the past year weight has: remained stable Dental Care, Regularly: No Physical Activity Frequency: Does not Exercise Physical Activity Frequency Comment: very little Seatbelt Use: always Sunscreen Use: Yes Assistive Devices: Denture - Upper, Denture - Lower and Hearing Aid - Bilateral Assistive Devices Comment: "HARDLY EVER" WEARS DENTURES Physical Exam Constitutional: well developed and well nourished Neck: neck nontender Respiratory: normal respiratory effort; no respiratory distress and does not use accessory muscles Cardiovascular: Rate/Rhythm: regular rate Vessels: radial pulses present Extremities: no edema Gastrointestinal (Abdomen): Inspection/Auscultation: abdomen normal to inspection Percussion/Palpation: abdomen soft; abdomen nontender and no guarding Musculoskeletal: Head/Neck/Chest: normocephalic and head atraumatic Extremities: extremities normal to inspection Skin: no rashes and no lesions Trauma: no evidence of skin trauma Neurologic: awake; not obtunded Speech / Cognition: normal speech Motor/Sensory: no tremor Psychiatric: Orientation: alert and oriented x 3 Genitourinary: no CVA tenderness Lymphatic: no lymphadenopathy Results & Data Vital Signs (Past 12 Hours) Vital Signs Temp Pulse Resp BP Pulse Ox O2 Del Method 01/19/23 07:05 36.6 C 60 18 175/79 H 97 Room Air 01/19/23 06:53 Room Air
[2023-01-19] MEDS ORDERED: ATROPINE SULFATE 0.1 MG/ML 10ML SYR IV PRN (07:32)
[2023-01-19] MEDS ORDERED: ONDANSETRON INJ 2 MG/ML 2 ML VIAL IV PRN (07:32)
[2023-01-19] MEDS ORDERED: ePHEDrine sulfate 50 MG/ML AMP IV PRN (07:32)
[2023-01-19] MEDS ORDERED: PROMETHAZINE HCL 12.5 MG in SODIUM CHLORIDE 0.9% 50 ML IV PRN (07:32)
[2023-01-19] MEDS ORDERED: NALOXONE HCL 0.4 MG/1 ML VIAL/CARP IV PRN (07:32)
[2023-01-19] MEDS ORDERED: LABETALOL HCL IV 5 MG/ML 20ML IV PRN (07:32)
[2023-01-19] MEDS ORDERED: FLUMAZENIL 0.1 MG/1 ML 10 ML VIAL IV PRN (07:32)
[2023-01-19] MEDS ORDERED: ONDANSETRON INJ 2 MG/ML 2 ML VIAL ONE (07:52)
[2023-01-19] MEDS ORDERED: DEXAMETHASONE SOD INJ 4 MG/ML VIAL ONE (07:52)
[2023-01-19] MEDS ORDERED: fentaNYL citrate PF 100 MCG/2 ML VIAL ONE (07:52)
[2023-01-19] MEDS ORDERED: PROPOFOL IV EMULSION 10 MG/ML 20 ML VIAL IV ONE ×2 (07:52→09:07)
[2023-01-19] MEDS ORDERED: LIDOCAINE 2% 2 ML VIAL/AMP(20MG/ML) INFIL ONE (07:52)
[2023-01-19] MEDS ORDERED: ePHEDrine sulfate 50 MG/ML SYR ONE (09:08)
--- NOTE | 2023-01-19 09:36 | Operative Report ---
PG Post Operative Report Pre & Post Diagnosis Operation Date: 01/19/23 08:20 Pre-Op Diagnosis: Bladder Diverticulum, Bladder Stone, Benign Prostatic hyperplasia Post-Op Diagnosis: Bladder Diverticulum, Bladder Stone, Benign Prostatic hyperplasia I identified the patient and participated in the time-out.: Yes Procedure Operation Date: 01/19/23 08:20 Actual Procedures p Transurethral Resection of the Prostate(Not Applicable) - Rios Conteh MD - Rios Conteh MD Surgeon Rios Conteh MD Milk Runner none Estimated Blood Loss 1 Findings Consistent with Post-Op Diagnosis Specimens prostate chips Description of Procedure The patient was identified in the preoperative holding area, appropriate info rmed consents were reviewed and completed and the patient was transferred to the operative suite. Upon arrival, appropriate antibiotics and anesthesia were administered and the patient was placed in dorsal lithotomy position and prepped and draped in sterile fashion. To be in the case I passed a 26 [place]i resectoscope with 30 degree lens and visual bandsaw operator peer inspection revealed a healthy-appearing urethra. He does have 1 wide caliber stricture in the bulb but I was easily able to navigate this with a 26 [place]i scope. His prostate is quite enlarged. Is a very high bladder neck which was somewhat challenging to advance the scope over. He has intravesical intrusion of his prostate. His bladder is very heavily trabeculated. Initial inspection was somewhat limited because of the challenge of reaching the scope over the prostate. I did not immediately identify any stones but he certainly has numerous shallow diverticuli and cellules. I could not identify the UOs on initial inspection, presumably because of their location behind the bladder neck and intravesical portion of the prostate. At that time I began resection of the prostate beginning with an incision at 5 and 7:00 and resection of the intravesical component of the prostate. I proceeded to then resect the left and right lateral lobes and required some anterior resection as well. Ultimately the prostatic urethra was widely patent and hemostasis was obtained and was excellent. I irrigated all prostate chips out of the bladder and passed them off the table as a specimen. I continued to inspect his bladder with both the 30 and 70 degree lens. I never identified any stones but he has numerous small cellules and he could have a stone lying within 1 that was not quite visible to me. Given the heavy trabeculation of the bladder, definitive identification of the UOs was very challenging. I am still uncertain if I ever truly solve them. He has numerous locations that appear to be likely locations for the UOs but given his heavy trabeculation is challenging to know with certainty. Concluded the case by placing a 22 [place]raini catheter and reversing him from anesthesia. There were no complications. I attest to the content of the Intraoperative Record and any orders documented therein. Any exceptions are noted below.
[2023-01-19] MEDS: fentaNYL citrate PF 100 MCG/2 ML VIAL IV PRN ×2 (09:56→10:02)
--- NOTE | 2023-01-19 10:24 | Anesthesiology Progress Note ---
Date of Service January 19, 2023 Anesthesia Post Procedure Vital Signs Vital Signs: Temp Pulse Pulse Resp BP Pulse Ox O2 Del Method 01/19/23 10:20 36.3 C L 80 16 126/61 92 Room Air 01/19/23 10:10 74 21 118/60 93 Room Air 01/19/23 10:00 78 16 131/76 95 Room Air 01/19/23 09:50 80 20 138/67 97 Oxymask 01/19/23 09:40 79 18 123/66 99 Oxymask 01/19/23 09:36 36.5 C 63 16 118/62 97 Oxymask 01/19/23 07:05 36.6 C 60 18 175/79 H 97 Room Air 01/19/23 06:53 Room Air O2 Flow Rate 01/19/23 10:20 01/19/23 10:10 01/19/23 10:00 01/19/23 09:50 6 01/19/23 09:40 6 01/19/23 09:36 6 01/19/23 07:05 01/19/23 06:53 Pain Intensity Penis: Pain Intensity: 4 Transfer of Care Handoff Completed per policy Notes Mental Status: alert / awake / arousable Patient Amnestic to Procedure: Yes Nausea / Vomiting: adequately controlled Pain: adequately controlled Airway Patency, RR, SpO2: stable & adequate BP & HR: stable & adequate Hydration State: stable & adequate Anesthetic Complications: no major complications apparent
[2023-01-19] MEDS ORDERED: BENZONATATE 100 MG CAPSULE PO PRN (11:00)
[2023-01-19] MEDS ORDERED: ACETAMINOPHEN 500 MG TAB PO PRN (11:00)
[2023-01-19] MEDS: SODIUM CHLORIDE 0.9% 1000ML 1,000 ML IV SCH (11:55)
[2023-01-19] MEDS: PHENAZOPYRIDINE HCL 100 MG TAB PO PRN ×2 (12:14→23:04)
[2023-01-20] MEDS: SODIUM CHLORIDE 0.9% 1000ML 1,000 ML IV SCH (00:12)
--- NOTE | 2023-01-20 08:05 | Urology Progress Note ---
Date of Service January 20, 2023 Assessment & Plan (1) BPH w urinary obs/LUTS: Plan: Postop day #1 status post TURP Voiding trial this morning Discharge home Can stop tamsulosin and finasteride Admission and Anticipated Discharge Date Admission Date: January 19, 2023 Subjective No issues overnight Urine clearing appropriately No pain On Pyridium Anxious for his catheter to be removed Physical Exam Physical Exam: Essentially clear urine Results & Data Vital Signs (Past 12 Hours) Vital Signs Temp Pulse Resp BP Pulse Ox O2 Del Method 01/20/23 07:22 36.6 C 65 16 156/75 H 96 Room Air 01/20/23 04:03 36.7 C 89 16 153/76 H 94 Room Air 01/19/23 23:23 36.6 C 79 16 131/72 95 Room Air PG Care Time/CCT Total # of Minutes Spent Total Time Spent with Patient: Total time spent is greater than 50% in coordination of care (as documented) at patient's floor/unit and/or counseling patient: Coding Level of Care Code None Diagnoses BPH w urinary obs/LUTS N40.1; N13.8
[2023-01-20] MEDS: PHENAZOPYRIDINE HCL 100 MG TAB PO PRN (08:34)
[2023-01-20] MEDS ORDERED: METOPROLOL SUCC 25MG EXT REL TAB PO SCH (09:00)
[2023-01-20] MEDS ORDERED: ATORVASTATIN 40 MG TAB PO SCH (09:00)
[2023-01-20] MEDS ORDERED: CITALOPRAM 20 MG TAB PO SCH (09:00)
[2023-01-20] MEDS ORDERED: EZETIMIBE 10 MG TABLET PO SCH (09:00)
[2023-01-20] MEDS ORDERED: PANTOprazole 40 MG TAB PO SCH (09:00)
--- NOTE | 2023-01-20 17:25 | Discharge Summary ---
Date of Service January 20, 2023 Admission HPI Per Admitting Provider 77yo/M presents for TURP and lithopaxy - previously scheduled, but had to be delayed because of pneumonia - now recovered - stable for surgery Admission Exam Per Admitting Provider Constitutional: well developed and well nourished Neck: neck nontender Respiratory: normal respiratory effort; no respiratory distress and does not use accessory muscles Cardiovascular: Rate/Rhythm: regular rate Vessels: radial pulses present Extremities: no edema Gastrointestinal (Abdomen): Inspection/Auscultation: abdomen normal to inspection Percussion/Palpation: abdomen soft; abdomen nontender and no guarding Musculoskeletal: Head/Neck/Chest: normocephalic and head atraumatic Extremities: extremities normal to inspection Skin:L no rashes and no lesions Trauma: no evidence of skin trauma Neurologic: awake; not obtunded Speech / Cognition: normal speech Motor/Sensory: no tremor Psychiatric: Orientation: alert and oriented x 3 Genitourinary: no CVA tenderness Lymphatic: no lymphadenopathy Principal Diagnosis Bladder Diverticulum, Bladder Stone, BPH Discharge Exam Constitutional well developed and well nourished; no acute distress Respiratory no respiratory distress and no labored breathing Skin Warm and dry Neurologic moves all extremities and awake Psychiatric A+Ox3, euthymic affect Discharge Data Allergies Allergy/AdvReac Type Severity Reaction Status Date / Time ERIBERTO Inhibitors AdvReac Severe orthostatic Verified 01/19/23 06:50 hypotension/contraindicated per [facility] cardio ARB-Angiotensin Receptor AdvReac Severe orthostatic Verified 01/19/23 06:50 Antagonist hypotension/contraindicated per [facility] cardio Procedures Performed Operation Date: 01/19/23 08:20 Actual Procedures p Transurethral Resection of the Prostate(Not Applicable) - Rios Conteh MD s Cystolithopaxy(Not Applicable) - Rios Conteh MD Hospital Course (1) BPH w urinary obs/LUTS: Plan 77yo/M admitted status post TURP with Dr. Conteh. Patient tolerated procedure well. No acute issues postoperatively. He remained afebrile and hemodynamically stable. No reported pain. Tolerated diet. Ambulated without issue. Patient passed a voiding trial on postop day #1. He was discharged home in stable condition. Discharge instructions were reviewed, all questions were answered. Total Time Total Time Spent Total Time Spent (In Minutes): 15 Discharge Plan Discharge Items Patient Disposition: Home - Self-Care Reason For Visit: Bladder Diverticulum, Bladder Stone, Benign Prosta Discharge Diagnosis: Bladder Diverticulum, Bladder Stone, BPH Activity: Per Instructions section Non-emergency contact: Surgeon and Urologist Call non-emergency contact if: you have any medication questions, your pain is not controlled, your pain is worsening and you have a fever Follow-up/Referrals: Faina Carlin DO [Primary Care Provider] - Alma Taylor CRNP [Nurse Practitioner] - Diet: Regular Addtl Attending Provider Instructions: Please take all medications as prescribed and keep all follow-ups as scheduled. Please call our office at [phone] with any questions, concerns or need to reschedule appointments for any reason. We are happy to assist you. The urology office will contact you to arrange a follow-up visit. You may resume your aspirin in the next 1-2 days given your urine remains clear to light pink. Please call the office with any questions or concerns. You can stop taking tamsulosin and finasteride. Tips for your recovery at home: Dont be alarmed by brownish or reddish blood or clots in your urine. This is a result of the procedure. This may occur off and on for weeks to months after the procedure but should continue to improve. Drink plenty of fluids during the day (enough to keep your urine very light colored). This will help keep a healthy flow of urine. Do not lift >25 lbs until your followup Avoid constipation. Please use a stool softener (Colace) for the first two weeks after your procedure if needed. When to call [facility] at [phone]: Your urine contains heavy blood clots or you are unable to urinate You are constantly leaking urine Fever of 101F or higher, chills, nausea, or vomiting Your pain is not relieved with medication Pending Studies at Discharge: Yes (pathology) Stand-Alone Forms: My [employer], Smoking Cessation Medications and DC Order Prescriptions: Continued triamcinolone acetonide 0.5 % cream 1 applic topical BID PRN (Reason: skin irritation) Qty: 60 1RF cholecalciferol (vitamin D3) 50 mcg (2,000 unit) capsule 50 mcg PO DAILY Qty: 90 3RF Vitron-C 65 mg iron- 125 mg tablet,delayed release (DR/EC) 1 tab PO QAM benzonatate 200 mg capsule 200 mg PO TID PRN (Reason: cough) Qty: 21 2RF (DME) Aerochamber Plus Z Stat Spacer See Rx Instructions .ROUTE .MEDSUPPLY Qty: 1 0RF Rx Instructions: As directed aspirin 81 mg Tablet,Delayed Release (Dr/Ec) 81 mg PO QAM atorvastatin 80 mg tablet 80 mg PO QAM citalopram 40 mg tablet 60 mg PO QAM omeprazole 40 mg capsule,delayed release(DR/EC) 40 mg PO QAM metoprolol succinate 25 mg tablet extended release 24 hr 25 mg PO QAM ezetimibe 10 mg Tablet 10 mg PO QAM Discontinued tamsulosin 0.4 mg Capsule 0.4 mg PO QAM finasteride 5 mg tablet 5 mg PO QAM Discharge Orders: Discharge Order (Routine); Ordered 01/20/23 Ordered By: Candi Keane/Other Patient Handouts: Hematuria: Possible Causes, Benign Prostatic Hyperplasia, Understanding Bladder Stones Admission Data Admit Date/Time: 01/19/23 09:33 Attending Provider: Rios Conteh Admit Provider: Rios Conteh Primary Care Provider: Fania Carlin Other Interventions: Discharge Summary Assessment (RN) Last Done: 01/20/23 11:44 Coding Level of Care Code 45009 IN/OBS DISCH 30 MIN/LESS Diagnoses BPH w urinary obs/LUTS N40.1; N13.8
== END 2023-01-20 12:50 | disposition home or self-care (01) ==
LOC: ASU 06:16 → 3W 06:16
DX: Z72.0 Tobacco use; Z86.16 Personal history of COVID-19; Z68.32 Body mass index [BMI] 32.0-32.9, adult; E11.22 Type 2 diabetes mellitus with diabetic chronic kidney disease; Z97.4 Presence of external hearing-aid; N21.0 Calculus in bladder; Z79.82 Long term (current) use of aspirin; N18.9 Chronic kidney disease, unspecified; Z79.899 Other long term (current) drug therapy; N40.1 Benign prostatic hyperplasia with lower urinary tract symptoms; Z86.711 Personal history of pulmonary embolism; I12.9 Hypertensive chronic kidney disease with stage 1 through stage 4 chronic kidney disease, or unspecified chronic kidney disease; N32.3 Diverticulum of bladder; N13.8 Other obstructive and reflux uropathy; Z95.5 Presence of coronary angioplasty implant and graft; I25.2 Old myocardial infarction; N32.89 Other specified disorders of bladder; Z20.822 Contact with and (suspected) exposure to COVID-19; Z88.8 Allergy status to other drugs, medicaments and biological substances; E66.9 Obesity, unspecified